=== PATIENT | female | born 1945 | race Caucasian/White ===

== ENCOUNTER 2016-12-19 11:17 | Inpatient (IN) ==
[2016-12-19] MEDS ORDERED: Piperacillin/Tazobactam 4.5 GM in D5% in Water (Mini-Bag+) 100 ML IVPB ONE (11:59)
[2016-12-19] MEDS ORDERED: Vancomycin 1,500 MG in D5% in Water 250 ML IVPB ONE (11:59)
[2016-12-19 12:17] LABS: Hematocrit 32.8 % (35.3-44.9); Hemoglobin 9.3 g/dL (11.5-15.4); Mean Corpuscular HGB Conc 28.4 g/dL (31.6-35.5); Mean Corpuscular Hemoglobin 22.9 pg (28.0-33.3); Mean Corpuscular Volume 80.6 fL (83.0-100.0); Mean Platelet Volume 10.8 fL (9.4-12.4); Platelet Count 220 K/mcL (140-400); Red Blood Count 4.07 M/mcL (3.82-4.97); Red Cell Distribution Width 17.6 % (11.5-14.5)
[2016-12-19 12:30] LABS: BUN/Creatinine Ratio 24 (6-26); Blood Urea Nitrogen 18 mg/dL (7-20); Calcium 9.9 mg/dL (8.6-10.8); Carbon Dioxide 24 mEq/L (19-29); Chloride 105 mEq/L (98-109); Glucose 102 mg/dL (70-99); Osmolality,Calculated 290 (280-300); Potassium 4.3 mEq/L (3.5-4.5); Sodium 139 mEq/L (136-145); eGFR For African Americans > 60 (> 60); eGFR For Non-African Americans > 60 (> 60)
--- NOTE | 2016-12-19 12:55 | Emergency Department Note ---
Disposition Clinical Impression: Pleural effusion, Shortness of breath Disposition: Admitted As Inpatient Condition: Fair SOB HPI - General Chief Complaint: ED Shortness of Breath/Dyspnea Stated Complaint: CHF/SOB/BLE edema Time Seen by Provider: 12/19/16 11:49 Source: patient Limitations: no limitations Nursing Notes Reviewed: Yes Vital Signs Reviewed: Yes - History of Present Illness Patient presents for shortness of breath which is worse the last several days and is worse with exertion, positive orthopnea, positive weight gain, positive swelling lower extremities. She denies history of cardiac disease but does have a history of a carotid stent in the distant past. She denies any chest pain. Does have urgency to urinate at night and when she gets back that sometimes has some incontinence patient does not have any back pain. Social history: No smoking. family history: Positive for heart disease in both parents - Related Data Home Medications Medication Instructions Recorded Confirmed Multivitamin [Multi-Day Vitamins] 1 each PO DAILY 12/28/14 12/19/16 Rivaroxaban [Xarelto] 20 mg PO DAILY 09/27/16 12/19/16 Acetaminophen [Tylenol Arthritis] 650 mg PO TID PRN 11/26/16 12/19/16 Clopidogrel [Plavix] 75 mg PO DAILY 11/26/16 12/19/16 Furosemide [Lasix] 20 mg PO DAILY 11/26/16 12/19/16 Lansoprazole [Prevacid] 30 mg PO QAM 11/26/16 12/19/16 Rosuvastatin Calcium [Crestor] 10 mg PO HS 11/26/16 12/19/16 Diltiazem HCl [Diltiazem ER] 360 mg PO DAILY 12/19/16 12/19/16 Metoprolol XL (24 HR) Succ [Toprol 25 mg PO BID 12/19/16 12/19/16 XL] Allergies Allergy/AdvReac Type Severity Reaction Status Date / Time simvastatin [From Zocor] Allergy Hives Verified 12/19/16 11:34 Estrogens AdvReac See Verified 12/19/16 11:34 Comments Review of Systems: Constitutional: No fever Vision: No blurred vision ENT: No rhinorrhea Respiratory: She does have a dry cough Allergic: No allergies : No blood in urine GI: No blood in stool Hematologic: No bruising Dermatologic: No skin rash Musculoskeletal: No pain in the extremities does have swelling bilateral lower extremities Neuro: No numbness of the extremities Past Medical History - Past Medical History Medical history: Reports: atrial fibrillation, cancer, hyperlipidemia, other Surgical history: Reports: hysterectomy Psychiatric history: Reports: no psych history OUTREACH ANALYST history: Reports: cervical cancer, endometriosis, other - Social History Smoking Status: Never smoker Smokeless Tobacco Status: No Alcohol use: Reports: none Drug use: Reports: none Physical Exam CONSTITUTIONAL: Well-appearing; well-nourished; A&O X 3, in no apparent distress HEAD: Normocephalic; atraumatic EYES: PERRL, no scleral icterus NOSE: The nose is normal in appearance without rhinorrhea NECK: No JVD or distended neck veins RESP: Normal chest excursion with respiration; breath sounds with bilateral rhonchi and crackles but no wheezing. Lung sounds are symmetric. CARD: Regular rhythm, without murmurs, rub or gallop ABD: Non-distended; non-tender, soft, without rigidity, rebound or guarding,no pulsatile mass CHEST: No pain with palpation SKIN: Normal for age and race; warm and dry without diaphoresis ; no apparent lesions EXTREMITIES: Pulses are 2 plus and equal times 4 extremities, does have bilateral symmetric 3+ pitting pretibial several edema, no calf muscle pain. No erythema or signs of infection - General Limitations: no limitations General appearance: alert Course Vital Signs Temperature 97.6 F 12/19/16 11:35 Pulse Rate 64 12/19/16 11:35 Respiratory Rate 20 12/19/16 11:35 Blood Pressure 112/62 12/19/16 11:35 O2 Sat by Pulse Oximetry 95 12/19/16 11:35 Temperature 97.6 F 12/19/16 18:17 Pulse Rate 137 12/19/16 18:17 Respiratory Rate 16 12/19/16 18:17 Blood Pressure 132/84 12/19/16 18:17 O2 Sat by Pulse Oximetry 93 12/19/16 18:17 Oxygen Delivery Oxygen Delivery Room Air Shortness of Breath/Dyspnea - MDM Narrative Medical decision making narrative: Symptoms concerning for congestive heart failure, I have reviewed the labs, chest x-ray is pending, I did review the T showing atrial fibrillation with rapid ventricular response with a rate of 112 bpm and some nonspecific ST changes. QRS interval is 94. Patient will have labs for BNP and this is pending. Patient will be admitted for CHF 1255 I rev the labs and has chronic anemia. CXR with new right pleural effusion. I spoke with IR and they will perform thorocentesis. I spoke w the hospitalist who accepts for admission. [id number] - Lab Data Result diagrams: 12/19/16 12:06 12/19/16 12:06 Lab Results 12/19/16 12/19/16 12/19/16 Range/Units 12:06 12:06 12:06 WBC 5.5 (4.3-11.1) K/mcL RBC 4.07 (3.82-4.97) M/mcL Hgb 9.3 L (11.5-15.4) g/dL Hct 32.8 L (35.3-44.9) % MCV 80.6 L (83.0-100.0) fL MCH 22.9 L (28.0-33.3) pg MCHC 28.4 L (31.6-35.5) g/dL RDW 17.6 H (11.5-14.5) % Plt Count 220 (140-400) K/mcL MPV 10.8 (9.4-12.4) fL PT (9.4-12.1) Seconds INR APTT (26.0-36.0) Seconds Sodium 139 (136-145) mEq/L Potassium 4.3 (3.5-4.5) mEq/L Chloride 105 (98-109) mEq/L Carbon Dioxide 24 (19-29) mEq/L BUN 18 (7-20) mg/dL Creatinine 0.74 (0.57-1.11) mg/dL Est GFR ( Amer) > 60 (> 60) Est GFR (Non-Af Amer) > 60 (> 60) BUN/Creatinine Ratio 24 (6-26) Glucose 102 H (70-99) mg/dL Calculated Osmolality 290 (280-300) Calcium 9.9 (8.6-10.8) mg/dL B-Natriuretic Peptide 234 H (0-100) pg/mL 12/19/16 Range/Units 12:06 WBC (4.3-11.1) K/mcL RBC (3.82-4.97) M/mcL Hgb (11.5-15.4) g/dL Hct (35.3-44.9) % MCV (83.0-100.0) fL MCH (28.0-33.3) pg MCHC (31.6-35.5) g/dL RDW (11.5-14.5) % Plt Count (140-400) K/mcL MPV (9.4-12.4) fL PT 19.3 H (9.4-12.1) Seconds INR 1.8 APTT 32.6 (26.0-36.0) Seconds Sodium (136-145) mEq/L Potassium (3.5-4.5) mEq/L Chloride (98-109) mEq/L Carbon Dioxide (19-29) mEq/L BUN (7-20) mg/dL Creatinine (0.57-1.11) mg/dL Est GFR ( Amer) (> 60) Est GFR (Non-Af Amer) (> 60) BUN/Creatinine Ratio (6-26) Glucose (70-99) mg/dL Calculated Osmolality (280-300) Calcium (8.6-10.8) mg/dL B-Natriuretic Peptide (0-100) pg/mL
[2016-12-19 13:24] LABS: INR 1.8; Prothrombin Time 19.3 Seconds (9.4-12.1)
[2016-12-19 13:26] LABS: Activated Partial Thrombo Time 32.6 Seconds (26.0-36.0)
[2016-12-19] MEDS ORDERED: Naloxone 0.4 MG/ML INJ IVP PRN (15:07)
[2016-12-19] MEDS ORDERED: Furosemide 40 MG/4 ML VIAL IVP ONE (15:15)
--- NOTE | 2016-12-19 15:15 | Internal Med History&Physical ---
<Kay Julien - Last Filed: 12/19/16 15:38> Date of Encounter: 12/19/16 Time of Encounter: 15:09 Assessment and Plan (1) CHF (congestive heart failure) Current visit: Yes Status: Acute 1 patient has been experiencing increasing shortness of breath on exertion orthopnea motion of the swelling as well as weight gain over the past week. She is on Lasix 20 mg daily and she did take an extra Lasix over the weekend without any relief. Chest x-ray did reveal a large right-sided pleural effusion. Did speak to interventional radiology through thoracentesis. We will hold Xarelto overnight and thoracentesis will be completed in the morning 2 with 40 mg IV Lasix now and increase oral dosage to 40 daily 3 continuous oxygen 4 continuous cardiac monitoring 5 we will obtain a cardiac echo 6 monitor intake and output daily weights 7 low sodium diet Qualifiers: Congestive heart failure type: diastolic Congestive heart failure chronicity: acute on chronic Qualified Code(s): I50.33 - Acute on chronic diastolic (congestive) heart failure (2) Pleural effusion Current visit: Yes Status: Acute 1 apparently in September patient was diagnosed with a small right-sided pleural effusion. She has been experiencing increasing shortness of breath over the past week. Chest x-ray reveals pleural effusion has grown. Patient will undergo thoracentesis in the a.m. We will hold Xarelto 2NPO after midnight (3) Atrial fibrillation Current visit: Yes Status: Acute 1 patient has history of chronic atrial fibrillation. Presently rate is controlled. We will continue with xarelto 2 continue with metoprolol and Cardizem Qualifiers: Atrial fibrillation type: chronic Qualified Code(s): I48.2 - Chronic atrial fibrillation (4) DVT prophylaxis Current visit: Yes Status: Acute 1 on xarelto Internal Medicine - H&P: HPI Chief complaint: SOB Admitted From: Emergency Dept Plans for Post Hospital Care: Home History of present illness: Ms. Dustin Lopez is a 71 year old female with past medical history of CVA carotid stenosis with stent placement 10/2016 chronic atrial fibrillation on Xarelto. In September patient had a mild stroke she was sent to [facility] where she received a stent to right carotid. While at [facility] it was that she had a small pleural effusion was advised to follow-up with pulmonary. She was then placed on Plavix. Since this time she has had some experience of nosebleeds and has been all by ENT. She has not had any nosebleeds past few days. However for the past week she has been experiencing increasing shortness of breath on exertion she is unable to perform her ADLs orthopnea or weight gain swelling of lower extremities. She denies any chest pain, palpitations or productive cough fevers abdominal pain nausea vomiting diarrhea. She presented to the ER with the above complaints. According to ER records and lab work revealed BNP of 234 INR was 1.8 PT is 19.3 PTT 32.6 Chem-7 unremarkable CBC with hemoglobin 9.3 which is around her baseline. Chest x-ray did reveal large right-sided pleural effusion. She has been admitted for further workup and evaluation. Presently patient is walking around the room she was short of breath she had conversational dyspnea. Lung sounds are clear diminished in the bases heart sounds irregular S1-S2 no rubs clicks or gallops murmurs noted abdomen soft nontender she has +2 pitting edema up to her knees bilaterally. I did speak to interventional radiology who advised to hold Xarelto overnight and thoracentesis will be completed in the morning. She is hemodynamically stable. I reviewed his case with Dr. Denny who agrees with plan Past Med Surg Social Fam HX - Past Medical History Medical history: atrial fibrillation, cancer, hyperlipidemia, other Psychiatric history: no psych history - Past Surgical History Surgical History: hysterectomy - Social History Smoking Status: Never smoker Smokeless Tobacco Status: No Alcohol use: none Drug use: none - Family History Mother Living Status: Hx Family Cardiac Disorders: Yes (Afib) Hx Family Cancer: Yes Hx Family Endocrine Disorder: Yes (Diabetes) Hx Family Neurologic Disorders: Yes (Stroke) Internal Medicine - H&P: Meds Multivitamin [Multi-Day Vitamins] 1 each PO DAILY 12/28/14 [History] Rivaroxaban [Xarelto] 20 mg PO DAILY 09/27/16 [History] Acetaminophen [Tylenol Arthritis] 650 mg PO TID PRN 11/26/16 [History] Clopidogrel [Plavix] 75 mg PO DAILY 11/26/16 [History] Furosemide [Lasix] 20 mg PO DAILY 11/26/16 [History] Lansoprazole [Prevacid] 30 mg PO QAM 11/26/16 [History] Rosuvastatin Calcium [Crestor] 10 mg PO HS 11/26/16 [History] Diltiazem HCl [Diltiazem ER] 360 mg PO DAILY 12/19/16 [History] Metoprolol XL (24 HR) Succ [Toprol XL] 25 mg PO BID 12/19/16 [History] 3 Allergy/AdvReac Type Severity Reaction Status Date / Time simvastatin [From Zocor] Allergy Hives Verified 12/19/16 11:34 Estrogens AdvReac See Verified 12/19/16 11:34 Comments All Systems PM: A 10-system review of systems was performed and is negative for pertinent findings except as documented above in the HPI. - Constitutional Constitutional: no chills, no fever(s), no night sweats - EENT Eyes: no change in vision, no discharge, no pain, no photophobia Nose, mouth and throat: epistaxis - Cardiovascular Cardiovascular ROS IM: dyspnea, dyspnea on exertion, edema, irregular heart rhythm, orthopnea, no chest pain, no diaphoresis, no lightheadedness, no palpitations, no syncope - Respiratory Respiratory: dyspnea on exertion, no cough, no dyspnea, no wheezing, no excessive phlegm production - Gastrointestinal Gastrointestinal: no abdominal pain, no diarrhea, no hematemesis, no hematochezia, no melena, no nausea, no vomiting - Genitourinary Genitourinary: no change in urinary stream, no dysuria, no flank pain, no hematuria - Musculoskeletal Musculoskeletal ROS IM: no numbness, no tingling - Neurological Neurological ROS: no confusion, no convulsions, no focal weakness, no numbness, no tingling, no tremor(s) - Hematologic/Lymphatic Hematologic/Lymphatic: no easy bruising - Constitutional Vitals: Temp Pulse Resp BP Pulse Ox 97.6 F 101 0 0/0 98 12/19/16 11:35 12/19/16 13:34 12/19/16 13:54 12/19/16 13:54 12/19/16 13:34 General appearance: Present: A&O X 3 - Head Head exam: Present: atraumatic, normocephalic - Eye Eye exam: Present: PERRL, conjuntiva pink, sclera anicteric Pupils: Present: PERRL - Neck Neck exam general surgery: Present: supple, trachea midline. Absent: lymphadenopathy - Respiratory Respiratory exam: Present: decreased breath sounds, CTAB. Absent: accessory muscle use, rales, rhonchi, wheezes - Cardiovascular Cardiovascular exam: Present: irregular rhythm, +S1, +S2. Absent: diastolic murmur, gallop, rubs, systolic murmur - GI/Abdominal GI/Abdominal exam: Present: normal bowel sounds, soft, no peritoneal signs. Absent: distended, tenderness - Extremities Exam Extremities exam: Present: pedal edema, warm, radial pulses palpable and symmetrical. Absent: calf tenderness, cyanotic - Neurological Exam Neurological exam: Present: CN II-XII intact, oriented X3, no focal deficits. Absent: pronater drift, facial droop, speech deficit - Skin Skin exam: Present: dry, intact Internal Med - H&P Results - Labs CBC & Chem 7: 12/19/16 12:06 12/19/16 12:06 - EKG Data Prior EKG available for review: yes When compared to previous EKG: there is no significant change - Impressions Afib - Diagnostic Studies Other Images Additional comments: Chest X-Ray 12/19/16 12:04 IMPRESSION: Large right-sided pleural effusion with overlying atelectatic changes. D/ / 12/19/2016 12:26:32 Naif Guerrero MD / jai Interpreting Provider: Naif Guerrero MD <Taina Denny - Last Filed: 12/19/16 17:25> Date of Encounter: 12/19/16 Internal Medicine - H&P: HPI History of present illness: Ms. Dustin Lopez is a 71 year old female All Systems PM: A 10-system review of systems was performed and is negative for pertinent findings except as documented above in the HPI. - Constitutional Vitals: Temp Pulse Resp BP Pulse Ox 98.3 F 114 17 126/83 94 12/19/16 14:50 12/19/16 14:50 12/19/16 14:50 12/19/16 14:50 12/19/16 14:50 Internal Med - H&P Results - Labs CBC & Chem 7: 12/19/16 12:06 12/19/16 12:06 - Attending Attestation Pt independently seen and examined at bedside. Admitted for dyspnea secondary to large right pleural effusion. History of CHF. Will continue IV diuresis today. IR consulted for thoracentesis. Pleural fluid studies ordered for further evaluation and to determine if it is a transudative vs exudative effusion. will closely monitor respiratory status. O2 supplementation as needed Case discussed with CAROL Julien, I agree with her documented findings, assessment, and plan.
[2016-12-19] MEDS: Metoprolol XL (24 HR) Succ 25 MG TAB.ER.24H PO SCH (19:50)
[2016-12-19] MEDS: Acetaminophen 325 MG TABLET PO PRN (21:01)
[2016-12-20 01:45] LABS: Basophils % 0.5 %; Eosinophils % 0.5 %; Hemoglobin 9.3 g/dL (11.5-15.4); Immature Granulocytes % 0.2 % (0-4); Monocytes % 10.7 %
[2016-12-20 01:46] LABS: Hematocrit 32.9 % (35.3-44.9); Lymphocytes # 1.2 K/mcL (0.6-4.6); Lymphocytes % 21.1 %; Mean Corpuscular HGB Conc 28.3 g/dL (31.6-35.5); Mean Corpuscular Hemoglobin 22.6 pg (28.0-33.3); Mean Platelet Volume 11.1 fL (9.4-12.4); Monocytes # 0.6 K/mcL (0.0-1.3); Platelet Count 228 K/mcL (140-400); Red Blood Count 4.11 M/mcL (3.82-4.97); Red Cell Distribution Width 17.6 % (11.5-14.5)
[2016-12-20 01:56] LABS: BUN/Creatinine Ratio 24 (6-26); Blood Urea Nitrogen 19 mg/dL (7-20); Carbon Dioxide 25 mEq/L (19-29); Chloride 105 mEq/L (98-109); Glucose 93 mg/dL (70-99); Osmolality,Calculated 292 (280-300); Potassium 4.6 mEq/L (3.5-4.5); Sodium 140 mEq/L (136-145); eGFR For African Americans > 60 (> 60); eGFR For Non-African Americans > 60 (> 60)
[2016-12-20 02:15] LABS: Anisocytosis 1+ (Not Present); Hypochromasia Present (Not Present); Microcytosis Present (Not Present); Platelet Estimate Normal (Normal); Reactive Lymphocytes Present (Not Present)
[2016-12-20] MEDS: Acetaminophen 325 MG TABLET PO PRN ×3 (04:24→19:50)
[2016-12-20] MEDS: Diltiazem CD (24hr) 180 MG CAPSULE PO SCH (08:58)
[2016-12-20] MEDS: Metoprolol XL (24 HR) Succ 25 MG TAB.ER.24H PO SCH ×2 (08:59→19:49)
[2016-12-20] MEDS: Multivit/Ca/Min/Fe/FA 1 TAB TABLET PO SCH (08:59)
[2016-12-20] MEDS: Furosemide 40 MG TABLET PO SCH (08:59)
--- NOTE | 2016-12-20 10:02 | IR Procedure Note ---
Date of procedure: 12/20/16 Consent Obtained: Verbal consent, Written consent Indications: right pleural effusion Procedure Performed: right thoracentesis Site/Technique: right thoracentesis performed Results/Findings: Moderate pleural effusion Estimated blood loss (cc): 1 Complications: None; Tolerated procedure well Post Procedure Treatment Plan: Continue inpatient care
--- NOTE | 2016-12-20 11:31 | Internal Med Progress Note ---
Date of Encounter: 12/20/16 Time of Encounter: 08:15 - Assessment and plan (1) Pleural effusion Current Visit: Yes Status: Acute Assessment and plan: Chest xray with large right sided pleural effusion, thoracentesis performed. Repeat chest xray with significantly smaller right pleural effusion following thoracentisis. No pneumothorax. Pt had chest pain after procedure and radiologist was notified. No changes, states that is probably rebound pain. 1600 ml fluid removed during procedure. Continue telemetry 02 as needed for 02 sats less than 92% (2) CHF (congestive heart failure) Current Visit: Yes Status: Acute Assessment and plan: Pt with SOB, pleural effusion/thoracentesis, +3-4 pitting edema to delia LE which is normal for her, uncomfortable and makes it difficult to ambulate and find properly fitting shoes. Continue Lasix Strict I and O, Fluid restriction, Daily weights Telemetry O2 as needed for 02 sats < 92% Monitor labs and vitals Qualifiers: Congestive heart failure type: diastolic Congestive heart failure chronicity: acute on chronic Qualified Code(s): I50.33 - Acute on chronic diastolic (congestive) heart failure (3) HTN (hypertension) Current Visit: Yes Status: Acute Assessment and plan: Continue to monitor vitals. Continue home medications. Well controlled in inpt setting. Qualifiers: Hypertension type: essential hypertension Qualified Code(s): I10 - Essential (primary) hypertension (4) Atrial fibrillation Current Visit: Yes Status: Acute Assessment and plan: Xarelto was held for procedure, will restart tomorrow. Rate controlled with Metoprolol and Cardizem. Continue medications. Qualifiers: Atrial fibrillation type: chronic Qualified Code(s): I48.2 - Chronic atrial fibrillation (5) DVT prophylaxis Current Visit: Yes Status: Acute Assessment and plan: Pt is ambulatory in room. will restart Xarelto in the a.m. AQUILES hose. - Time Spent With Patient less than 15 minutes - Subjective Interval history: Pt seen and assessed at 0815. Female friend at . She denies pain at this time , but states that she has had orthopnea for 2 weeks. She states that she has been seen by pulmonology and did not get to finish any of the testing due to epistaxis and prolonged packing. She also states that she is fatigued due to not being able to sleep due to orthopnea and incontinence when she lies down. She reports approximately 30lb weight gain over 2 mos. She states that she is unable to complete her ADLs due to dyspnea. - Constitutional Vitals: Temp Pulse Resp BP Pulse Ox 97.7 F 124 15 104/71 100 12/20/16 10:59 12/20/16 10:59 12/20/16 10:59 12/20/16 10:59 12/20/16 10:59 General appearance: Present: A&O X 3, pleasant, no acute distress, answers questions appropriately - Head Head exam: Present: normal inspection - Eye Eye exam: Present: normal appearance, conjuntiva pink - ENT ENT exam: Present: mucous membranes moist, normal exam, normal external ear exam - Neck Neck exam general surgery: Present: normal inspection. Absent: lymphadenopathy , tenderness - Respiratory Respiratory exam: Present: decreased breath sounds. Absent: chest wall tenderness, prolonged expiratory phase, rales, respiratory distress, rhonchi, stridor, wheezes Additional comments: lung sounds diminished on entire R side posteriorly, clear on L. - Cardiovascular Cardiovascular exam: Present: RRR, +S1, +S2. Absent: clicks, diastolic murmur, gallop, systolic murmur - GI/Abdominal GI/Abdominal exam: Present: normal bowel sounds, soft. Absent: distended, hepatomegaly, tenderness - Extremities Exam Extremities exam: Present: pedal edema, tenderness, warm, radial pulses palpable and symmetrical. Absent: normal inspection Additional comments: +3-4 pitting edema to ble from knees to toes. - Neurological Exam Neurological exam: Present: alert, oriented X3, no focal deficits, strengths equal and symetr throughout. Absent: altered, facial droop, speech deficit - Skin Skin exam: Present: dry, intact, normal color, warm. Absent: rash Internal Medicine: Result - Labs CBC & Chem 7: 12/20/16 01:15 12/20/16 01:15 - ABG Interpretation ABG results: PT/INR, D-dimer PT 19.3 Seconds (9.4-12.1) H 12/19/16 12:06 Consult Discharge Plan - Plan Referrals: NONE,PCP [Primary Care Provider] -
[2016-12-20 12:02] LABS: RBC,Pleural Fluid 0.021 M/mcL
[2016-12-20 12:12] LABS: Glucose,Pleural Fluid 104 mg/dL (No Ref Range); LDH,Pleural Fluid 98 Units/L (No Ref Range); Total Protein,Pleural Fluid 4.5 g/dL (No Ref Range)
[2016-12-20 13:14] LABS: Appearance of Pleural Fl Cloudy (Clear)
--- NOTE | 2016-12-20 16:59 | Electrocardiograph Report ---
[place] [id number] Test Date: 2016-12-19 Pat Name: Leonor Lopez Department: 104 Room: 3B Gender: F Member Service Specialist: : [id number] Requested By: Eladio Tafoya Order Number: [id number] Reading MD: Venessa Mcdowell Measurements Intervals [place] Rate: 112 P: NE: 0 QRS: 35 QRSD: 94 T: 60 QT: 338 QTc: 404 Interpretive Statements ATRIAL FIBRILLATION WITH RAPID VENTRICULAR RESPONSE NONSPECIFIC T-WAVE ABNORMALITY ABNORMAL RHYTHM ECG Electronically Signed On 12-20-2016 16:57:25 EDT by Venessa Mcdowell
[2016-12-21] MEDS: Acetaminophen 325 MG TABLET PO PRN (03:31)
[2016-12-21 05:17] LABS: Basophils % 0.5 %; Eosinophils % 0.5 %; Hematocrit 29.4 % (35.3-44.9); Hemoglobin 8.8 g/dL (11.5-15.4); Immature Granulocytes % 0.2 % (0-4); Lymphocytes # 1.2 K/mcL (0.6-4.6); Lymphocytes % 21.3 %; Mean Corpuscular HGB Conc 29.9 g/dL (31.6-35.5); Mean Corpuscular Volume 80.1 fL (83.0-100.0); Mean Platelet Volume 11.6 fL (9.4-12.4); Monocytes # 0.7 K/mcL (0.0-1.3); Monocytes % 11.8 %; Neutrophils # 3.6 K/mcL (1.6-8.9); Platelet Count 193 K/mcL (140-400); Red Blood Count 3.67 M/mcL (3.82-4.97); Red Cell Distribution Width 17.8 % (11.5-14.5); Segmented Neutrophils % 65.7 %
[2016-12-21 05:29] LABS: BUN/Creatinine Ratio 21 (6-26); Blood Urea Nitrogen 18 mg/dL (7-20); Calcium 9.7 mg/dL (8.6-10.8); Carbon Dioxide 29 mEq/L (19-29); Chloride 105 mEq/L (98-109); Glucose 87 mg/dL (70-99); Osmolality,Calculated 295 (280-300); Potassium 4.2 mEq/L (3.5-4.5); Sodium 142 mEq/L (136-145); eGFR For African Americans > 60 (> 60); eGFR For Non-African Americans > 60 (> 60)
[2016-12-21 07:43] VITALS: BP 113/72
[2016-12-21] MEDS: Metoprolol XL (24 HR) Succ 25 MG TAB.ER.24H PO SCH (09:27)
[2016-12-21] MEDS: Multivit/Ca/Min/Fe/FA 1 TAB TABLET PO SCH (09:27)
[2016-12-21] MEDS: Diltiazem CD (24hr) 180 MG CAPSULE PO SCH (09:28)
[2016-12-21] MEDS: Furosemide 40 MG TABLET PO SCH (09:28)
--- NOTE | 2016-12-21 10:54 | Discharge Summary ---
Date of Encounter: 12/21/16 Time of Encounter: 08:50 - Discharge Diagnosis (1) Pleural effusion Priority: Primary Status: Acute Comments: Thoracentesis yesterday. Removed 1600ml serous fluid. Repeat chest xray shows small pleural effusion without pneumothorax. Pt states that she is feeling better and is breathing miuch easier; states that she is able to lie down for the first time in a long time. Peripheral smear is still pending. Fluid was cloudy with RBC elevated at 0.021. Pt will follow up with PCP after discharge. (2) CHF (congestive heart failure) Priority: Secondary Status: Chronic Comments: Pt states that she is breathing more easily than on arrival and edema to BLE is somewhat better than arrival, still +3-4, but is not hard as it was yesterday. pt states that they are somewhat less painful than arrival. Continue Lasix at home. Education completed on fluid restriction, low sodium diet and daily weights. Pt will follow up with PCP within 7 days, could discuss increasing lasix for edema. Qualifiers: Congestive heart failure type: diastolic Congestive heart failure chronicity: acute on chronic Qualified Code(s): I50.33 - Acute on chronic diastolic (congestive) heart failure (3) HTN (hypertension) Priority: Secondary Status: Chronic Comments: Chronic. Continue home medications. Qualifiers: Hypertension type: essential hypertension Qualified Code(s): I10 - Essential (primary) hypertension (4) Atrial fibrillation Priority: Secondary Status: Chronic Comments: Continue Xarelto. Rate controlled with Metoprolol and Cardizem. continue home doses. Qualifiers: Atrial fibrillation type: chronic Qualified Code(s): I48.2 - Chronic atrial fibrillation (5) DVT prophylaxis Priority: Secondary Status: Acute Comments: Continue Xarelto. - Discharge Medications Home Medications: Multivitamin [Multi-Day Vitamins] 1 each PO DAILY 12/28/14 [History] Rivaroxaban [Xarelto] 20 mg PO DAILY 09/27/16 [History] Acetaminophen [Tylenol Arthritis] 650 mg PO TID PRN 11/26/16 [History] Clopidogrel [Plavix] 75 mg PO DAILY 11/26/16 [History] Furosemide [Lasix] 20 mg PO DAILY 11/26/16 [History] Lansoprazole [Prevacid] 30 mg PO QAM 11/26/16 [History] Rosuvastatin Calcium [Crestor] 10 mg PO HS 11/26/16 [History] Diltiazem HCl [Diltiazem ER] 360 mg PO DAILY 12/19/16 [History] Metoprolol XL (24 HR) Succ [Toprol Xl] 25 mg PO BID 12/19/16 [History] Allergies/Adverse Reactions: 3 Allergy/AdvReac Type Severity Reaction Status Date / Time simvastatin [From Zocor] Allergy Hives Verified 12/19/16 11:34 Estrogens AdvReac See Verified 12/19/16 11:34 Comments Date of admission: 12/20/16 10:49 Primary care physician: PCP NONE Discharging clinician: Luanne Garrido Anticipated date of discharge: 12/21/16 - Patient Status Disposition: Home, Self-Care Condition: Good Functional capacity at discharge: independent ambulation Overall status at discharge: patient is progressing back to baseline - Discharge Instructions Instructions: Heart Failure (DC), Atrial Fibrillation (DC), Pleural Effusion ( DC), Chronic Hypertension (DC) Follow Up With: Kavon Castaneda MD [Partnered Physician] - 12/29/16 11:30 am NONE,PCP [Primary Care Provider] - Additional Instructions: Follow up with your PCP on 12/29 as scheduled. Increase your Lasix to 40mg daily at home for the next 3 days, then go back to your normal dose. Return to the ER as needed for any other problems or concerns or if your symptoms return or worsen. Continue your other home medications and resume your normal activities as tolerated. Remember to follow a low sodium diet and fluid restriction. Weigh yourself daily, if you start seeing a weight gain again, notify your PCP. - Diet and Activity Activity: increase activity as tolerated, resume usual activities as tolerated Diet: low salt diet, other Hospital course: Ms. Dustin Lopez is a 71 year old female with past medical history of TIA, CHF diastolic, palpitations, A. fib with anticoagulation on Xarelto. She presented to the emergency department on 12/19 with complaint of increasing shortness of breath on exertion, difficulty performing ADLs, orthopnea, increased lower extremity edema, as well as a 30 pound weight gain over the last 2-3 months. Patient takes Lasix 40 mg daily at home, she did increase her Lasix over the weekend without any relief. Patient states that she has not been able to lie down to sleep and did not see the need to seek care for that. Chest x-ray on admission showed a large right-sided pleural effusion. Patient had diminished lung sounds on the right for physical exam prior to thoracentesis. Thoracentesis was performed at bedside, 1600 mL's of serous fluid was removed. Patient tolerated the procedure well, she did have right shoulder pain after the procedure that was relieved with analgesic medication. Patient also has +3-4 pitting edema bilaterally, it does seem to be improved today and is less hard than it was before, although it is still pending. Patient also notices significant difference to lower extremities and we will increase her Lasix dose at home for a few days. She will follow up with primary care for further treatment and evaluation of CHF and edema. Patient has diminished lung sounds throughout posteriorly, as stated above peripheral edema is marginally better today. Patient does state that she is breathing more easily and does feel better today. We discussed home care including monitoring fluid restriction, daily weights, and low-sodium diet. Patient verbalized understanding and I feel that she will be successful. Patient will continue her normal home medications with the exception of increasing the Lasix for the next couple of days. She will restart her Xarelto today. Patient's labs are within normal limits, her vital signs are stable and within normal limits, she has a follow-up appointment with her primary care provider on December 29. I have encouraged her to return to the ER for continued treatment if she begins having chest pain, shortness of breath, increasing edema or weight gain. Patient is appropriate and stable for discharge. - Time Spent with Patient Total time spent providing and/or coordinating discharge services: Less than 30 minutes - Constitutional Vitals: Temp Pulse Resp BP Pulse Ox 97.6 F 110 18 113/72 96 12/21/16 07:39 12/21/16 07:39 12/21/16 07:39 12/21/16 07:39 12/21/16 09:44 General appearance: Present: cooperative, A&O X 3, pleasant, no acute distress, answers questions appropriately - Head Head exam: Present: atraumatic, normal inspection, normocephalic - Eye Eye exam: Present: normal appearance, PERRL, conjuntiva pink Pupils: Present: PERRL - ENT ENT exam: Present: mucous membranes moist, normal exam, normal external ear exam - Neck Neck exam general surgery: Present: normal inspection, supple, trachea midline. Absent: lymphadenopathy, tenderness - Respiratory Respiratory exam: Present: CTAB. Absent: accessory muscle use, rales, rhonchi, wheezes - Cardiovascular Cardiovascular exam: Present: irregular rhythm, +S1, +S2. Absent: diastolic murmur, gallop, rubs, systolic murmur - GI/Abdominal GI/Abdominal exam: Present: normal bowel sounds, soft, no peritoneal signs. Absent: distended, hepatomegaly, tenderness - Extremities Exam Extremities exam: Present: pedal edema, warm, radial pulses palpable and symmetrical. Absent: calf tenderness, cyanotic - Neurological Exam Neurological exam: Present: alert, oriented X3, no focal deficits, pronater drift. Absent: facial droop, speech deficit - Skin Skin exam: Present: dry, intact, normal color, warm. Absent: rash
== END 2016-12-21 11:24 | disposition home or self-care (01) | DRG 292 ==
LOC: 3BNU 11:17 → EMEROO 11:17 → 3BNU 14:12
PROVIDERS: ADMIT Internal Medicine; ATTEND Nurse Practitioner Family

== ENCOUNTER 2017-03-15 13:11 | Observation (INO) ==
--- NOTE | 2017-03-15 14:29 | Emergency Department Note ---
Disposition Clinical Impression: Shortness of breath, Pleural effusion Atrial fibrillation Qualifiers: Atrial fibrillation type: chronic Qualified Code(s): I48.2 - Chronic atrial fibrillation Disposition: Admitted As Inpatient Time of Disposition: 16:13 SOB HPI - General Chief Complaint: ED Shortness of Breath/Dyspnea Stated Complaint: EDWAR Time Seen by Provider: 03/15/17 13:36 Source: patient Mode of arrival: ambulatory Limitations: no limitations Nursing Notes Reviewed: Yes Vital Signs Reviewed: Yes - History of Present Illness 71 year old female presents to the ED complaining of shortness of breath. Patient is currently being worked up by pulmonology for continuing pleural effusions and one chylothorax. She was drained 2 weeks ago. Today she was sitting in the PET scan was unable to lay down and said she was very short of breath so they sent her here as she would need a pulmonary consult. Patient is not complaining of any pain. She does have history of A. fib is always in A. fib she did take her normal medications today. She is currently being worked up for some kind of cancer causing her to have these pulmonary effusions. Patient is currently being worked up for this. At this time she is having no other complaints other than the shortness of breath. She is only short of breath when she lays down is not when she is sitting up. She is not normally on oxygen. There is no source of the cancer that they have found yet. Patient is not complaining of any chest pain, shortness of breath, headaches, blurry vision, abdominal pain, change in bowel movements. She has had increased leg swelling and has been incontinent for the last couple days she says due to her being fluid overloaded. This is normal for her after she does get to fluid overloaded. She is taking Lasix. There is no changes to her medications otherwise. She is having no pain or tingling go down the arms or legs, generalized numbness or weakness. Patient has no other complaints at this time. - Related Data Home Medications Medication Instructions Recorded Confirmed Multivitamin [Multi-Day Vitamins] 1 each PO DAILY 12/28/14 03/15/17 Rivaroxaban [Xarelto] 20 mg PO DAILY 09/27/16 03/15/17 Acetaminophen [Tylenol Arthritis] 650 mg PO Q12H PRN 11/26/16 03/15/17 Clopidogrel [Plavix] 75 mg PO DAILY 11/26/16 03/15/17 Furosemide [Lasix] 20 - 40 mg PO DAILY 11/26/16 03/15/17 Lansoprazole [Prevacid] 30 mg PO QAM 11/26/16 03/15/17 Rosuvastatin Calcium [Crestor] 10 mg PO HS 11/26/16 03/15/17 Diltiazem HCl [Diltiazem ER] 360 mg PO DAILY 12/19/16 03/15/17 Metoprolol XL (24 HR) Succ [Toprol 25 mg PO BID 12/19/16 03/15/17 Xl] Allergies Allergy/AdvReac Type Severity Reaction Status Date / Time simvastatin [From Zocor] Allergy Hives Verified 12/19/16 11:34 Estrogens AdvReac See Verified 12/19/16 11:34 Comments Review of Systems: 10 point review of systems done and negative unless otherwise stated in history of present illness. All systems ED: reviewed and negative except as stated. Review of Systems: As Per HPI Past Medical History - Past Medical History Attestation: Yes The following information was validated with the patient. Medical history: Reports: arthritis, atrial fibrillation, cancer, fibromyalgia, hyperlipidemia, other Surgical history: Reports: angioplasty/stent, hysterectomy Psychiatric history: Reports: depression [employer]ATE[employer]EC[employer]IVE history: Reports: cervical cancer, endometriosis, other - Social History Smoking Status: Never smoker Smokeless Tobacco Status: No Alcohol use: Reports: none Drug use: Reports: none Physical Exam - General Limitations: no limitations General appearance: alert, in no apparent distress - Head Head exam: atraumatic, normocephalic, normal inspection - Eye Eye exam: Present: normal appearance, PERRL, EOMI - ENT ENT exam: normal exam, normal oropharynx, mucous membranes moist - Neck Neck exam: Present: normal inspection, full ROM, trachea midline - Chest Chest inspection: Present: normal inspection, symmetric chest wall rise - Respiratory Respiratory exam: Present: normal lung sounds bilaterally, other (Patient has diminished breath sounds on the right lower lobe. Otherwise normal breath sounds.). Absent: respiratory distress, accessory muscle use, prolonged expiratory phase - Cardiovascular Cardiovascular exam: Present: tachycardia, irregular rhythm, normal heart sounds - Abdominal Exam Abdominal exam: Present: soft, Non-Tender. Absent: tenderness, distention, guarding, rebound, rigidity - Extremities Exam Extremities exam: Present: normal inspection, full ROM, normal capillary refill , pedal edema (Patient has 3+ pitting edema bilaterally.). Absent: tenderness, calf tenderness - Expanded Lower Extremity Exam Neurovascular/Tendon exam: Present: normal capillary refill. Absent: pulse deficit, motor deficit, sensory deficit, tendon deficit - Back Exam Back exam: Present: normal inspection, full ROM. Absent: tenderness, CVA tenderness (R), CVA tenderness (L) - Neurological Exam Neurological exam: Present: alert, oriented X3 - Skin Skin exam: Present: warm, dry, intact, normal color Course Course Narrative: 71-year-old female presents to the ED complaining of difficulty breathing when laying down for PET scan. We will do a chest pain and dyspnea workup. We will get a chest x-ray. Patient is a 30 on medication she is always in A. fib she did take her normal medications. We will not work at the atrial fibrillation at this time. Patient is okay with this. - Reevaluation(s) Reevaluation #1: Interventional radiology called back and said that she does have a pleural effusion there in house and they said they will come down to do a thoracentesis on the patient now. Patient was notified of this and agrees with this plan. Time: 14:33 Reevaluation #2: When I are came down to see her and they stated they cannot do the procedure due to her being on Xarelto. They would like for us to hold that and they said that they will do it later. At this time I called Dr. camron watkins and he states that we can admit to the hospitalist service with a pulmonology consult and he will do that tomorrow. In distress to hold it. I spoke the patient she agrees to this plan. - Consultations Consultation #1: Contact interventional radiology to see if they could do a thoracentesis on this patient as she does have a pleural effusion on her right side. They said they will come down and do it in the emergency department. Time: 14:33 Vital Signs Temperature 97.5 F L 03/15/17 13:14 Pulse Rate 110 03/15/17 13:14 Respiratory Rate 20 03/15/17 13:14 Blood Pressure 110/61 03/15/17 13:14 O2 Sat by Pulse Oximetry 96 03/15/17 13:14 Temperature 97.7 F 03/15/17 13:48 Pulse Rate 114 03/15/17 15:20 Respiratory Rate 16 03/15/17 16:44 Blood Pressure 132/86 03/15/17 16:44 O2 Sat by Pulse Oximetry 96 03/15/17 15:20 Oxygen Delivery Oxygen Delivery Room Air Shortness of Breath/Dyspnea - MDM Narrative Medical decision making narrative: 71-year-old female presents the ED with dyspnea. She was at the PET scan as she has been having these pleural effusions occurring quite a bit on her. She is currently being seen by pulmonology for this issue. There is a 1 sort of the PET scan. When she laid down she is unable to lay down since with a sent her here for evaluation. She was short of breath. We did chest x-ray showed a large pleural effusion on the right side. Interventional radiology was called to come to the thoracentesis she was unable to have it done here today as she is currently on Xarelto. We will hold that for 24 hours and admit her for observation. I contacted pulmonology and spoke with Dr. Pacheco who said that he will do a thoracentesis tomorrow and discharge her home in up for us to put a pulmonology consult and this was all done. All of her labs were normal. She is in atrial fibrillation which is normal for her and she is currently on diltiazem and metoprolol and takes them regularly. She was taking off her medications before the scan. She says she is not having any chest pain or any other symptoms. This will be an admission for thoracentesis to be done tomorrow. Patient will hold her Xarelto. Patient is admitted to Dr. SOSA who agreed to accept the patient. Patient is admitted in stable condition. - Medical Records Medical records reviewed: Yes I reviewed the patient's medical records. - Lab Data Lab results reviewed: Yes I reviewed the patient's lab results. Result diagrams: 03/15/17 14:33 03/15/17 14:33 Lab Results 03/15/17 03/15/17 03/15/17 Range/Units 14:26 14:33 14:33 WBC 6.8 (4.3-11.1) K/mcL RBC 4.39 (3.82-4.97) M/mcL Hgb 9.6 L (11.5-15.4) g/dL Hct 33.8 L (35.3-44.9) % MCV 77.0 L (83.0-100.0) fL MCH 21.9 L (28.0-33.3) pg MCHC 28.4 L (31.6-35.5) g/dL RDW 18.3 H (11.5-14.5) % Plt Count 184 (140-400) K/mcL MPV 11.0 (9.4-12.4) fL Seg Neutrophils % 80.0 % Lymphocytes % 10.0 % Monocytes % 10.0 % Neutrophils # 5.4 (1.6-8.9) K/mcL Lymphocytes # 0.7 (0.6-4.6) K/mcL Monocytes # 0.7 (0.0-1.3) K/mcL Platelet Estimate Slight Decrease L (Normal) Polychromasia 1+ A (Not Present) Hypochromasia Present A (Not Present) Target Cells 1+ A (Not Present) PT (9.4-12.1) Seconds INR Sodium 141 (136-145) mEq/L Potassium 3.8 (3.5-4.5) mEq/L Chloride 105 (98-109) mEq/L Carbon Dioxide 26 (19-29) mEq/L BUN 23 H (7-20) mg/dL Creatinine 0.82 (0.57-1.11) mg/dL Est GFR ( Amer) > 60 (> 60) Est GFR (Non-Af Amer) > 60 (> 60) BUN/Creatinine Ratio 28 H (6-26) Glucose 135 H (70-99) mg/dL Calculated Osmolality 298 (280-300) Lactic Acid (0.5-2.2) mmol/L Calcium 9.7 (8.6-10.8) mg/dL Troponin I (0-0.03) ng/mL B-Natriuretic Peptide (0-100) pg/mL Urine Color Yellow (Yellow) Urine Clarity Clear (Clear) Urine pH 6.0 (5.0-8.0) pH Units Ur Specific [place] 1.018 (1.010-1.025) Urine Protein Negative (Neg-Trace) mg/dL Urine Glucose (UA) Normal (Normal) mg/dL Urine Ketones Negative (Negative) mg/dL Urine Blood Trace H (Negative) Urine Nitrite Negative (Negative) Urine Bilirubin Negative (Negative) Urine Urobilinogen Normal (Normal) mg/dL Ur Leukocyte Esterase Negative (Negative) Urine Microscopic RBC 0-3 (0-3) per hpf Urine Microscopic WBC 0-3 (0-3) per hpf Ur Squamous Epith Cells Moderate H (None-Few) per lpf Urine Bacteria Moderate H (None-Few) per hpf Hyaline Casts None Seen (None-Few) per lpf Ur Culture Indicated? NO (NO) 03/15/17 03/15/17 03/15/17 Range/Units 14:33 14:33 14:33 WBC (4.3-11.1) K/mcL RBC (3.82-4.97) M/mcL Hgb (11.5-15.4) g/dL Hct (35.3-44.9) % MCV (83.0-100.0) fL MCH (28.0-33.3) pg MCHC (31.6-35.5) g/dL RDW (11.5-14.5) % Plt Count (140-400) K/mcL MPV (9.4-12.4) fL Seg Neutrophils % % Lymphocytes % % Monocytes % % Neutrophils # (1.6-8.9) K/mcL Lymphocytes # (0.6-4.6) K/mcL Monocytes # (0.0-1.3) K/mcL Platelet Estimate (Normal) Polychromasia (Not Present) Hypochromasia (Not Present) Target Cells (Not Present) PT (9.4-12.1) Seconds INR Sodium (136-145) mEq/L Potassium (3.5-4.5) mEq/L Chloride (98-109) mEq/L Carbon Dioxide (19-29) mEq/L BUN (7-20) mg/dL Creatinine (0.57-1.11) mg/dL Est GFR ( Amer) (> 60) Est GFR (Non-Af Amer) (> 60) BUN/Creatinine Ratio (6-26) Glucose (70-99) mg/dL Calculated Osmolality (280-300) Lactic Acid 1.0 (0.5-2.2) mmol/L Calcium (8.6-10.8) mg/dL Troponin I 0.00 (0-0.03) ng/mL B-Natriuretic Peptide 248 H (0-100) pg/mL Urine Color (Yellow) Urine Clarity (Clear) Urine pH (5.0-8.0) pH Units Ur Specific [place] (1.010-1.025) Urine Protein (Neg-Trace) mg/dL Urine Glucose (UA) (Normal) mg/dL Urine Ketones (Negative) mg/dL Urine Blood (Negative) Urine Nitrite (Negative) Urine Bilirubin (Negative) Urine Urobilinogen (Normal) mg/dL Ur Leukocyte Esterase (Negative) Urine Microscopic RBC (0-3) per hpf Urine Microscopic WBC (0-3) per hpf Ur Squamous Epith Cells (None-Few) per lpf Urine Bacteria (None-Few) per hpf Hyaline Casts (None-Few) per lpf Ur Culture Indicated? (NO) 03/15/17 Range/Units 14:33 WBC (4.3-11.1) K/mcL RBC (3.82-4.97) M/mcL Hgb (11.5-15.4) g/dL Hct (35.3-44.9) % MCV (83.0-100.0) fL MCH (28.0-33.3) pg MCHC (31.6-35.5) g/dL RDW (11.5-14.5) % Plt Count (140-400) K/mcL MPV (9.4-12.4) fL Seg Neutrophils % % Lymphocytes % % Monocytes % % Neutrophils # (1.6-8.9) K/mcL Lymphocytes # (0.6-4.6) K/mcL Monocytes # (0.0-1.3) K/mcL Platelet Estimate (Normal) Polychromasia (Not Present) Hypochromasia (Not Present) Target Cells (Not Present) PT 16.0 H (9.4-12.1) Seconds INR 1.5 Sodium (136-145) mEq/L Potassium (3.5-4.5) mEq/L Chloride (98-109) mEq/L Carbon Dioxide (19-29) mEq/L BUN (7-20) mg/dL Creatinine (0.57-1.11) mg/dL Est GFR ( Amer) (> 60) Est GFR (Non-Af Amer) (> 60) BUN/Creatinine Ratio (6-26) Glucose (70-99) mg/dL Calculated Osmolality (280-300) Lactic Acid (0.5-2.2) mmol/L Calcium (8.6-10.8) mg/dL Troponin I (0-0.03) ng/mL B-Natriuretic Peptide (0-100) pg/mL Urine Color (Yellow) Urine Clarity (Clear) Urine pH (5.0-8.0) pH Units Ur Specific [place] (1.010-1.025) Urine Protein (Neg-Trace) mg/dL Urine Glucose (UA) (Normal) mg/dL Urine Ketones (Negative) mg/dL Urine Blood (Negative) Urine Nitrite (Negative) Urine Bilirubin (Negative) Urine Urobilinogen (Normal) mg/dL Ur Leukocyte Esterase (Negative) Urine Microscopic RBC (0-3) per hpf Urine Microscopic WBC (0-3) per hpf Ur Squamous Epith Cells (None-Few) per lpf Urine Bacteria (None-Few) per hpf Hyaline Casts (None-Few) per lpf Ur Culture Indicated? (NO) - Radiology Data Radiology results reviewed: Yes I reviewed the patient's radiology results. - EKG Data EKG attestation: Yes I reviewed and interpreted this EKG. EKG results narrative: EKG done at 1470 myself and the attending shows atrial fibrillation at a rate of 121, QRS 95, QTC [address] changes, T-wave abnormalities, no signs of heart strain or hypertrophy, no signs of heart block, no signs of WPW/ Brugada syndrome. Patient's EKG is unchanged compared with old EKG done . Attestation Statement - Attestation Attestation: I examined this patient and my medical decision-making was reviewed with the Resident Physician. I agree with the documented findings, disposition and treatment plan as described except to the extent set forth below. Patient to ED with difficulty breathing. Patient was scheduled to have an outpatient PET scan today. She had trouble breathing when they laid her flat. She was sent to ED for evaluation. She has a history of a chylothorax with drainage. On examination he has diminished breath sounds. Plan. Patient with a large pleural effusion. Interventional radiology to drain. We will reevaluate following thoracentesis. Unable to perform thoracentesis secondary to his overall toe. Discussed with pulmonology who will perform thoracentesis tomorrow. Patient admitted to medicine.
[2017-03-15 14:33] LABS: Bilirubin,Urine Negative (Negative); Blood,Urine Trace (Negative); Clarity,Urine Clear (Clear); Color,Urine Yellow (Yellow); Glucose,Urine (UA) Normal (Normal); Ketones,Urine Negative (Negative); Leukocyte Esterase,Urine Negative (Negative); Nitrite,Urine Negative (Negative); Protein,Urine Negative (Neg-Trace); Specific Gravity,Urine 1.018 (1.010-1.025); Urobilinogen,Urine Normal (Normal)
[2017-03-15 14:36] LABS: Bacteria,Urine Moderate per hpf (None-Few); Hyaline Casts,Urine None Seen per lpf (None-Few); RBC,Urine 0-3 per hpf (0-3); Squamous Epithelial Cell,Urine Moderate per lpf (None-Few); WBC,Urine 0-3 per hpf (0-3)
[2017-03-15 14:51] LABS: Mean Corpuscular HGB Conc 28.4 g/dL (31.6-35.5)
[2017-03-15 14:52] LABS: Hematocrit 33.8 % (35.3-44.9); Hemoglobin 9.6 g/dL (11.5-15.4); Mean Corpuscular Hemoglobin 21.9 pg (28.0-33.3); Platelet Count 184 K/mcL (140-400); Red Blood Count 4.39 M/mcL (3.82-4.97); Red Cell Distribution Width 18.3 % (11.5-14.5)
[2017-03-15 14:54] LABS: BUN/Creatinine Ratio 28 (6-26); Blood Urea Nitrogen 23 mg/dL (7-20); Calcium 9.7 mg/dL (8.6-10.8); Carbon Dioxide 26 mEq/L (19-29); Chloride 105 mEq/L (98-109); Glucose 135 mg/dL (70-99); Osmolality,Calculated 298 (280-300); Potassium 3.8 mEq/L (3.5-4.5); Sodium 141 mEq/L (136-145); eGFR For African Americans > 60 (> 60); eGFR For Non-African Americans > 60 (> 60)
[2017-03-15 15:35] LABS: Lymphocytes # 0.7 K/mcL (0.6-4.6); Monocytes # 0.7 K/mcL (0.0-1.3); Neutrophils # 5.4 K/mcL (1.6-8.9)
[2017-03-15 15:36] LABS: Hypochromasia Present (Not Present); Target Cells 1+ (Not Present)
[2017-03-15 15:39] LABS: Platelet Estimate Slight Decrease (Normal); Polychromasia 1+ (Not Present)
[2017-03-15 18:32] LABS: INR 1.5
--- NOTE | 2017-03-15 19:25 | Internal Med History&Physical ---
<Kingston Romero - Last Filed: 03/15/17 23:37> Date of Encounter: 03/15/17 Time of Encounter: 18:00 Assessment and Plan (1) Pleural effusion Current visit: Yes Status: Acute Right-sided pleural effusion that appears larger than previously shown on imaging. Pt. reports hx of pleural effusions and this will be her fourth thoracentesis. Last procedure was March [address] Gan. Pt. was to receive PET scan today but could not lay flat. Denies home O2 use. 1.5L daily fluid restriction. Pulmonology consult and Interventional Radiology consult ordered in ED. Plan is to perform thoracentesis in the a.m. with instruction to hold Xarelto tonight and resume tomorrow following the thoracentesis. NPO at midnight. LDH in a.m. labs. Protein, culture, triglycerides, cytology, glucose, pH, cholesterol, LDH, amylase orders from pleural effusion fluids in a.m. Pt. is at high risk for further respiratory distress based on current sx, hx of previous pleural effusions, and risk factors. Observation. (2) Shortness of breath Current visit: Yes Status: Acute Acute SOB and dyspnea d/t current right-sided pleural effusion. 1-View CXR of the chest shows effusion has increased in size with adjacent mid to lower lung compressive atelectasis. No evidence of pneumothorax. No acute pulmonary process demonstrated elsewhere. Supplemental O2 w/titration and SpO2 monitoring. ` (3) HTN (hypertension) Current visit: Yes Status: Chronic Hx of chronic HTN. Monitor pt. and VS. Continue Diltiazem and Metoprolol. Qualifiers: Hypertension type: essential hypertension Qualified Code(s): I10 - Essential (primary) hypertension (4) HLD (hyperlipidemia) Current visit: Yes Status: Chronic Hx of chronic HLD. Lipid panel in a.m. labs. Continue pts. Crestor. Qualifiers: Hyperlipidemia type: pure hypercholesterolemia Qualified Code(s): E78.00 - Pure hypercholesterolemia, unspecified; E78.0 - Pure hypercholesterolemia (5) GERD (gastroesophageal reflux disease) Current visit: Yes Status: Chronic Hx of chronic GERD. Patient reports diagnosis of Barnes's esophagus. IVP Zofran Q6 PRN for nausea. Continue pts. PO Prevacid. Qualifiers: Esophagitis presence: with esophagitis Qualified Code(s): K21.0 - Gastro- esophageal reflux disease with esophagitis (6) Anemia Current visit: Yes Status: Chronic Acute on chronic iron deficiency anemia w/MCV of 77.0, MCH of 21.9, and RDW of 18.3. Pt. denies currently taking iron supplements. Monitor H/H in a.m. labs. Qualifiers: Anemia type: iron deficiency Iron deficiency anemia type: unspecified iron deficiency Qualified Code(s): D50.9 - Iron deficiency anemia, unspecified (7) Atrial fibrillation Current visit: Yes Status: Chronic Hx of chronic atrial fibrillation. Pt. states she was placed on Xarelto. Pt. currently in Afib on exam. Continue Xarelto. Continuous cardiac telemetry. Qualifiers: Atrial fibrillation type: chronic Qualified Code(s): I48.2 - Chronic atrial fibrillation (8) CHF (congestive heart failure) Current visit: Yes Status: Chronic Hx of chronic CHF. Pt. currently takes 20 mg lasix daily. 2+ bilateral pitting edema currently in LEs. 20 mg IVP lasix ordered BID. Monitor I&O and daily weight. Qualifiers: Congestive heart failure type: diastolic Congestive heart failure chronicity: acute on chronic Qualified Code(s): I50.33 - Acute on chronic diastolic (congestive) heart failure (9) DVT prophylaxis Current visit: Yes Status: Acute Continue pts. Xarelto for DVT prophylaxis. Internal Medicine - H&P: HPI Chief complaint: SOB/Dyspnea Admitted From: Emergency Dept Plans for Post Hospital Care: Home History of present illness: Ms. 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 She states she could not sleep last night d/t becoming SOB when laying down and was incontinent in bed twice d/t fluid overload. Pt. reports hx of pleural effusions of the right lung and was drained on March [address] Gan. States she was to have a PET scan this morning and could not lay flat so was sent to ED. She denies recent illness, fever, chills, nausea, vomiting, headache, cough, changes in vision, chest pain, abdominal pain, unusual bleeding, diarrhea, constipation, dizziness, lightheadedness, pre- syncope, or syncope. Past Med Surg Social Fam HX - Past Medical History Source: patient, old records reviewed Medical history: arthritis, atrial fibrillation, cancer (Endometrial >10 years ago), fibromyalgia, hyperlipidemia, hypertension, other Psychiatric history: depression - Past Surgical History Surgical History: angioplasty/stent (x1), hysterectomy (Total) - Social History Smoking Status: Never smoker Smokeless Tobacco Status: No Alcohol use: none Drug use: none Occupational status: previously employed Current living situation: Home Activity Level: Independent ambulation Recent Out of Country Travel Within the Last 8 Weeks: No Exposure or Possible Exposure to Illness During Travel: No - Family History Mother Race: Family Member Ethnicity: Non- Living Status: Age at : 83 Cause of : Complications from stroke Hx Family Cardiac Disorders: Yes (Stroke) Hx Family Endocrine Disorder: Yes (Diabetes) Hx Family Musculoskeletal Disorders: Yes (Arthritis) Father Race: Family Member Ethnicity: Non- Living Status: Age at : 83 Cause of : Stroke Hx Family Cardiac Disorders: Yes (Stroke, Afib) Hx Family Musculoskeletal Disorders: Yes (Arthritis) Sister Race: Family Member Ethnicity: Non- Living Status: Still Living Hx Family Cancer: Yes (Melanoma, Ovarian, Endometrial) Internal Medicine - H&P: Meds Multivitamin [Multi-Day Vitamins] 1 each PO DAILY 12/28/14 [History] Rivaroxaban [Xarelto] 20 mg PO DAILY 09/27/16 [History] Acetaminophen [Tylenol Arthritis] 650 mg PO Q12H PRN 11/26/16 [History] Clopidogrel [Plavix] 75 mg PO DAILY 11/26/16 [History] Furosemide [Lasix] 20 - 40 mg PO DAILY 11/26/16 [History] Lansoprazole [Prevacid] 30 mg PO QAM 11/26/16 [History] Rosuvastatin Calcium [Crestor] 10 mg PO HS 11/26/16 [History] Diltiazem HCl [Diltiazem ER] 360 mg PO DAILY 12/19/16 [History] Metoprolol XL (24 HR) Succ [Toprol Xl] 25 mg PO BID 12/19/16 [History] 3 Allergy/AdvReac Type Severity Reaction Status Date / Time simvastatin [From Zocor] Allergy Hives Verified 12/19/16 11:34 Estrogens AdvReac See Verified 12/19/16 11:34 Comments All Systems PM: A 10-system review of systems was performed and is negative for pertinent findings except as documented above in the HPI. - Constitutional Constitutional: no chills, no fever(s), no night sweats - EENT Eyes: no change in vision, no discharge, no pain, no photophobia Ears: no ear discharge, no ear pain, no tinnitus Nose, mouth and throat: no dysphagia, no nasal discharge, no neck pain, no sore throat - Breasts Breasts: as per HPI - Cardiovascular Cardiovascular ROS IM: as per HPI, dyspnea, dyspnea on exertion, edema (2+ pitting bilateral pedal edema), irregular heart rhythm (Chronic Afib), orthopnea - Respiratory Respiratory: as per HPI, dyspnea, dyspnea on exertion - Gastrointestinal Gastrointestinal: no abdominal pain, no diarrhea, no hematemesis, no hematochezia, no melena, no nausea, no vomiting - Genitourinary Genitourinary: as per HPI, urinary incontinence Menstruation: as per HPI, post hysterectomy - Musculoskeletal Musculoskeletal ROS IM: as per HPI, arthralgias, myalgias - Integumentary Integumentary IM: no rash, no unusual bruising - Neurological Neurological ROS: no confusion, no convulsions, no focal weakness, no numbness, no tingling, no tremor(s) - Psychiatric Psychiatric: as per HPI - Endocrine Endocrine IM: as per HPI - Hematologic/Lymphatic Hematologic/Lymphatic: no easy bruising - Allergic/Immunologic Allergic/Immunologic: as per HPI - Constitutional Vitals: Temp Pulse Resp BP Pulse Ox 97.7 F 114 16 132/86 96 03/15/17 13:48 03/15/17 15:20 03/15/17 16:44 03/15/17 16:44 03/15/17 15:20 General appearance: Present: cooperative, A&O X 3, morbidly obese, pleasant, no acute distress, answers questions appropriately - Head Head exam: Present: atraumatic, normal inspection, normocephalic - Eye Eye exam: Present: PERRL, conjuntiva pink, sclera anicteric Pupils: Present: PERRL - ENT ENT exam: Present: normal exam, normal external ear exam - Neck Neck exam general surgery: Present: normal inspection, supple, trachea midline. Absent: lymphadenopathy - Respiratory Respiratory exam: Present: decreased breath sounds (Right lung all lobes). Absent: accessory muscle use, rales, rhonchi, wheezes - Cardiovascular Cardiovascular exam: Present: irregular rhythm (Atrial fibrillation) - GI/Abdominal GI/Abdominal exam: Present: normal bowel sounds, soft, no peritoneal signs. Absent: distended, tenderness - Rectal Rectal exam: Present: deferred - Additional comments: exam deferred. - Extremities Exam Extremities exam: Present: pedal edema (2+ pitting bilateral LEs), warm, radial pulses palpable and symmetrical - Back Exam Back exam: Present: normal inspection - Neurological Exam Neurological exam: Present: CN II-XII intact, oriented X3, no focal deficits. Absent: pronater drift, facial droop, speech deficit - Psychiatric Psychiatric exam: Present: normal affect, normal mood - Skin Skin exam: Present: dry, intact Internal Med - H&P Results - Labs CBC & Chem 7: 03/15/17 14:33 03/15/17 14:33 - Diagnostic Studies Chest x-ray Additional comments: Impressions Chest X-Ray 03/15/17 14:02 IMPRESSION: Increased size of a moderate to large pleural effusion, with adjacent compressive atelectasis of the mid to lower lung. D/ / Jeff Reed MD / Jeff Reed MD Interpreting Provider: Jeff Reed MD <Drew Merino - Last Filed: 03/16/17 06:34> Date of Encounter: 03/16/17 Internal Medicine - H&P: HPI History of present illness: Ms. Dustin Lopez is a 71 year old female All Systems PM: A 10-system review of systems was performed and is negative for pertinent findings except as documented above in the HPI. - Constitutional Vitals: Temp Pulse Resp BP Pulse Ox 98.8 F 102 18 107/66 96 03/16/17 03:48 03/16/17 03:48 03/16/17 03:48 03/16/17 03:48 03/16/17 03:48 Internal Med - H&P Results - Labs CBC & Chem 7: 03/16/17 03:46 03/16/17 03:46 Labs: Short CBC 03/16/17 Range/Units 03:46 WBC 5.5 (4.3-11.1) K/mcL Hgb 8.5 L (11.5-15.4) g/dL Hct 30.0 L (35.3-44.9) % Plt Count 182 (140-400) K/mcL Neutrophils # 3.9 (1.6-8.9) K/mcL BMP 03/16/17 03:46 Sodium 142 Potassium 3.8 Chloride 104 Carbon Dioxide 30 H BUN 23 H Creatinine 0.79 Glucose 83 Calcium 9.6 Liver Function 03/16/17 Range/Units 03:46 Total Bilirubin 0.7 (0.2-1.2) mg/dL AST 14 (5-34) Units/L ALT 12 (0-55) Units/L Alkaline Phosphatase 76 (38-126) Units/L Albumin 3.3 L (3.5-5.0) g/dL - Attending Attestation I conducted a face to face diagnostic evaluation of this patient and my medical decision-making was reviewed with the Nurse Practitioner. I agree with the documented findings, disposition and treatment plan as described except to the extent set forth below: Echocardiogram from 12/19/2016 showed Ejection Fraction of 50% with Indeterminate Diastolic Dysfunction. Lung Examination Reveals Decreased Breath Sounds on the Right Side and 2+ Lower Extremity Pitting Edema.
[2017-03-15] MEDS ORDERED: *HR* HYDROcodone/Acet 5/325 mg TABLET PO PRN (19:55)
[2017-03-15] MEDS ORDERED: Ondansetron 4 MG/2 ML VIAL IVP PRN (19:55)
[2017-03-15] MEDS ORDERED: Naloxone 0.4 MG/ML INJ IVP PRN (19:55)
[2017-03-15] MEDS ORDERED: Acetaminophen 325 MG TABLET PO PRN (19:58)
[2017-03-15] MEDS: Metoprolol XL (24 HR) Succ 25 MG TAB.ER.24H PO SCH (21:05)
[2017-03-15] MEDS: Furosemide 20 MG/2 ML VIAL IVP SCH (23:46)
[2017-03-16 05:28] LABS: Eosinophils % 0.7 %; Hemoglobin 8.5 g/dL (11.5-15.4)
[2017-03-16 05:30] LABS: Basophils % 0.6 %; Immature Granulocytes % 0.7 % (0-4); Lymphocytes # 0.8 K/mcL (0.6-4.6); Lymphocytes % 14.1 %; Mean Corpuscular HGB Conc 28.3 g/dL (31.6-35.5); Mean Corpuscular Hemoglobin 21.5 pg (28.0-33.3); Mean Corpuscular Volume 75.9 fL (83.0-100.0); Mean Platelet Volume 11.5 fL (9.4-12.4); Monocytes # 0.7 K/mcL (0.0-1.3); Monocytes % 12.7 %; Neutrophils # 3.9 K/mcL (1.6-8.9); Platelet Count 182 K/mcL (140-400); Red Blood Count 3.95 M/mcL (3.82-4.97); Red Cell Distribution Width 18.2 % (11.5-14.5); Segmented Neutrophils % 71.2 %
[2017-03-16 05:32] LABS: Hemoglobin A1C 5.7 %
[2017-03-16 05:38] LABS: INR 1.4; Prothrombin Time 14.8 Seconds (9.4-12.1)
[2017-03-16 05:41] LABS: Activated Partial Thrombo Time 27.7 Seconds (26.0-36.0)
[2017-03-16 05:48] LABS: Alanine Aminotransferase 12 Units/L (0-55); Albumin 3.3 g/dL (3.5-5.0); Alkaline Phosphatase 76 Units/L (38-126); Aspartate Amino Transferase 14 Units/L (5-34); BUN/Creatinine Ratio 29 (6-26); Bilirubin,Total 0.7 mg/dL (0.2-1.2); Blood Urea Nitrogen 23 mg/dL (7-20); Calcium 9.6 mg/dL (8.6-10.8); Carbon Dioxide 30 mEq/L (19-29); Chloride 104 mEq/L (98-109); Chol/HDL Ratio 3.3 (0-4.9); Cholesterol 98 mg/dL (< 200); Globulin 3.2 g/dL (2.4-3.5); Glucose 83 mg/dL (70-99); HDL Cholesterol 30 mg/dL (40-59); LDL Cholesterol,Calculated 54 mg/dL (0-99); Magnesium 1.7 mg/dL (1.6-2.6); Osmolality,Calculated 297 (280-300); Potassium 3.8 mEq/L (3.5-4.5); Sodium 142 mEq/L (136-145); Total Protein 6.5 g/dL (6.0-8.3); Triglycerides 70 mg/dL (< 150); eGFR For African Americans > 60 (> 60); eGFR For Non-African Americans > 60 (> 60)
[2017-03-16 06:23] LABS: Hypochromasia Present (Not Present); Ovalocytes 1+ (Not Present); Poikilocytosis 1+ (Not Present)
[2017-03-16 06:24] LABS: Anisocytosis 1+ (Not Present); Large Platelets Present (Not Present); Platelet Estimate Normal (Normal); Target Cells 1+ (Not Present)
[2017-03-16 06:25] LABS: Macrocytosis Present (Not Present)
[2017-03-16 08:27] LABS: % Iron Saturation 3 % (15-50); Iron 15 mcg/dL (50-170); Transferrin 314 mg/dL (180-382)
[2017-03-16] MEDS ORDERED: *HR* Rivaroxaban 10 MG TABLET PO SCH (09:00)
[2017-03-16] MEDS ORDERED: Diltiazem CD (24hr) 180 MG CAPSULE PO SCH (09:00)
[2017-03-16] MEDS ORDERED: Multivit/Ca/Min/Fe/FA 1 TAB TABLET PO SCH (09:00)
[2017-03-16 09:02] LABS: Folate 18.1 ng/mL (7.0-31.4)
[2017-03-16] MEDS: Metoprolol XL (24 HR) Succ 25 MG TAB.ER.24H PO SCH (09:05)
--- NOTE | 2017-03-16 09:06 | Procedure Note ---
<Eladio Gray - Last Filed: 03/16/17 08:59> Date of procedure: 03/16/17 Pre-op diagnosis: Pleural Effusion Post-op diagnosis: same Procedure: Thoracentesis: Written consent was obtained from the patient. Timeout was performed to verify patient and procedure. The right posterior chest wall was surveyed using ultrasound and a large pleural effusion was identified. The skin was marked and and the patient was cleaned and draped in the usual sterile fashion. The skin and soft tissues were anesthetized using 1% lidocaine. A heriberto in the skin was made and the catheter over needle apparatus was advanced into the pleural space. The needle was removed intact. Approximately 1.4 L of light brown milky fluid was withdrawn. The catheter was then removed intact. 2 x 2 and Tegaderm were applied. The patient tolerated the procedure well. Fluid was sent to the lab for cytology. Postprocedure chest x-ray is pending. The patient tolerated the procedure well, there were no immediate complications. The attending physician, Dr. Gan, was present for the entire procedure. Anesthesia: local (10cc 1% lidocaine) Surgeon: Eladio Gray Pathology: other (fluid sent for cytology) Condition: stable Disposition: floor <Julio Gan - Last Filed: 03/16/17 09:46> Procedure: I examined this patient and my medical decision-making was reviewed with the Resident Physician. I agree with the documented findings, disposition and treatment plan as described except to the extent set forth below. I have personally advised resident performing thoracentesis without immediate complications.
--- NOTE | 2017-03-16 09:14 | Pulmonology Consult Note ---
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 Patient is asking for treatment and thoracentesis which was done with relief and improvement of dyspnea. All the risks, alternative, benefits of the procedure as explained to the patient prior thoracentesis was done. I have told patient she can go home and this was discussed with primary team if no complications postprocedure. I also advised her prior to her PET scan as outpatient she will need a thoracentesis or even Pleurx pleural catheter then hopefully she will be able to tolerate the PET scan. This is still unknown why she has this problem and PET scan might help if there is any abnormalities. Thank you for consultation and patient will follow-up as outpatient. 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 Patient felt better after the procedure. History of Present Illness Consult date: 03/16/17 Requesting physician: Gulshan Lainez Reason for consult: dyspnea, pleural effusion Chief complaint: Shortness of breath History of present illness: This is a pleasant 71-year-old female with known history of recurrent pleural effusion with chylothorax and she was going to have a PET scan as outpatient for further workup for this problem, unfortunately she was not able to lie down for the procedure. Patient had worsening shortness of breath and she felt the fluid is building up and she was sent to emergency room for treatment. Patient was on the coagulation for that reason procedure was not done. She was told previously she would have recurrent pleural effusion and PleurX pleural catheter was offered to her. She denies any fever or chills. She denies any hemoptysis. She denies any other complaint. Past Med Surg Social Fam HX - Past Medical History Medical history: arthritis, atrial fibrillation, cancer (Endometrial >10 years ago), fibromyalgia, hyperlipidemia, hypertension, other Psychiatric history: depression - Past Surgical History Surgical History: angioplasty/stent (x1), hysterectomy (Total) - Social History Smoking Status: Never smoker Smokeless Tobacco Status: No Alcohol use: none Drug use: none - Family History Mother Race: Family Member Ethnicity: Non- Living Status: Age at : 83 Cause of : Complications from stroke Hx Family Cardiac Disorders: Yes (Stroke) Hx Family Cancer: Yes Hx Family Endocrine Disorder: Yes (Diabetes) Hx Family Musculoskeletal Disorders: Yes (Arthritis) Hx Family Neurologic Disorders: Yes (Stroke) Father Race: Family Member Ethnicity: Non- Living Status: Age at : 83 Cause of : Stroke Hx Family Cardiac Disorders: Yes (Stroke, Afib) Hx Family Musculoskeletal Disorders: Yes (Arthritis) Sister Race: Family Member Ethnicity: Non- Living Status: Still Living Hx Family Cancer: Yes (Melanoma, Ovarian, Endometrial) Medications and Allergies Multivitamin [Multi-Day Vitamins] 1 each PO DAILY 12/28/14 [History] Rivaroxaban [Xarelto] 20 mg PO DAILY 09/27/16 [History] Acetaminophen [Tylenol Arthritis] 650 mg PO Q12H PRN 11/26/16 [History] Clopidogrel [Plavix] 75 mg PO DAILY 11/26/16 [History] Furosemide [Lasix] 20 - 40 mg PO DAILY 11/26/16 [History] Lansoprazole [Prevacid] 30 mg PO QAM 11/26/16 [History] Rosuvastatin Calcium [Crestor] 10 mg PO HS 11/26/16 [History] Diltiazem HCl [Diltiazem ER] 360 mg PO DAILY 12/19/16 [History] Metoprolol XL (24 HR) Succ [Toprol Xl] 25 mg PO BID 12/19/16 [History] 3 Allergy/AdvReac Type Severity Reaction Status Date / Time simvastatin [From Zocor] Allergy Hives Verified 12/19/16 11:34 Estrogens AdvReac See Verified 12/19/16 11:34 Comments All Systems: A 10-system review of systems was performed and is negative for pertinent findings except as documented above in the HPI. Physical Examination Vital Signs: Vital Signs, Last 4 Hours Temp Pulse Resp BP Pulse Ox 03/16/17 07:15 98.0 F 105 16 105/68 94 General appearance: appears uncomfortable Eyes: nonicteric ENT: oropharynx moist Mallampati (class): 3 Neck: supple Effort: normal Inspection: normal Auscultation: left: clear, right: diminished breath sounds Percussion: left: not dull, right: dull Cardiovascular: regular rate and rhythm Gastrointestinal: normoactive bowel sounds, non-distended Extremities: no cyanosis, no edema normal mental status, non-focal exam mood appropriate Results - Laboratory Findings CBC and BMP: 03/16/17 03:46 03/16/17 03:46 PT/INR, D-dimer PT 14.8 Seconds (9.4-12.1) H 03/16/17 03:46 Abnormal lab findings: Abnormal lab results Hgb 8.5 g/dL (11.5-15.4) L 03/16/17 03:46 Hct 30.0 % (35.3-44.9) L 03/16/17 03:46 MCV 75.9 fL (83.0-100.0) L 03/16/17 03:46 MCH 21.5 pg (28.0-33.3) L 03/16/17 03:46 MCHC 28.3 g/dL (31.6-35.5) L 03/16/17 03:46 RDW 18.2 % (11.5-14.5) H 03/16/17 03:46 Large Platelets Present (Not Present) A 03/16/17 03:46 Polychromasia 1+ (Not Present) A 03/15/17 14:33 Hypochromasia Present (Not Present) A 03/16/17 03:46 Poikilocytosis 1+ (Not Present) A 03/16/17 03:46 Anisocytosis 1+ (Not Present) A 03/16/17 03:46 Macrocytosis Present (Not Present) A 03/16/17 03:46 Target Cells 1+ (Not Present) A 03/16/17 03:46 Ovalocytes 1+ (Not Present) A 03/16/17 03:46 PT 14.8 Seconds (9.4-12.1) H 03/16/17 03:46 Carbon Dioxide 30 mEq/L (19-29) H 03/16/17 03:46 BUN 23 mg/dL (7-20) H 03/16/17 03:46 BUN/Creatinine Ratio 29 (6-26) H 03/16/17 03:46 Hemoglobin A1c 5.7 % (-5.6) H 03/16/17 03:46 Iron 15 mcg/dL (50-170) L 03/16/17 08:00 % Saturation 3 % (15-50) L 03/16/17 08:00 Lactate Dehydrogenase 128 Units/L (159-327) L 03/16/17 03:46 B-Natriuretic Peptide 248 pg/mL (0-100) H 03/15/17 14:33 Albumin 3.3 g/dL (3.5-5.0) L 03/16/17 03:46 Albumin/Globulin Ratio 1.0 (1.1-2.2) L 03/16/17 03:46 HDL Cholesterol 30 mg/dL (40-59) L 03/16/17 03:46 Urine Blood Trace (Negative) H 03/15/17 14:26 Ur Squamous Epith Cells Moderate per lpf (None-Few) H 03/15/17 14:26 Urine Bacteria Moderate per hpf (None-Few) H 03/15/17 14:26 - Diagnostic Findings Chest x-ray: report reviewed, image reviewed - Clinical Findings Intake & Output: Intake & Output 03/15/17 03/16/17 03/16/17 23:59 07:59 15:59 Intake Total 240 / 240 Balance 240 / 240 Weight 94.574 kg Consult Discharge Plan - Plan Referrals: Kavon Castaneda MD [Primary Care Provider] -
[2017-03-16] MEDS: Furosemide 20 MG/2 ML VIAL IVP SCH (09:15)
[2017-03-16 11:31] VITALS: BP 114/73
--- NOTE | 2017-03-16 11:46 | Discharge Summary ---
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 Patient has new history of pleural effusions this year and has had 4 thoracenteses this year. Patient was supposed to have a PET scan today could not lie flat. She is on a 1.5 L fluid restriction. She was seen by pulmonology who did a pleural effusion and discovered the chylothorax. Pulmonology recommends that she reschedule and have the PET scan as an outpatient and may need a thoracentesis or even a pleural catheter to be able to tolerate the PET scan. Patient tolerated the thoracentesis well, repeat chest x-ray showed decrease in size of right pleural effusion without pneumothorax. Chest X-Ray 03/16/17 08:35 IMPRESSION: Interval decrease in size of right pleural effusion. No pneumothorax. 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 (3) HTN (hypertension) Priority: Secondary Status: Chronic Comments: Well controlled. Continue home medications. Qualifiers: Hypertension type: essential hypertension Qualified Code(s): I10 - Essential (primary) hypertension (4) Shortness of breath Priority: Secondary Status: Resolved Comments: Resolved. Patient is no longer short of breath, she has not required several oxygen. (5) HLD (hyperlipidemia) Priority: Secondary Status: Chronic Comments: Chronic. Continue medication. Qualifiers: Hyperlipidemia type: pure hypercholesterolemia Qualified Code(s): E78.00 - Pure hypercholesterolemia, unspecified; E78.0 - Pure hypercholesterolemia (6) GERD (gastroesophageal reflux disease) Priority: Secondary Status: Chronic Comments: Chronic. Continue home medication. Qualifiers: Esophagitis presence: with esophagitis Qualified Code(s): K21.0 - Gastro- esophageal reflux disease with esophagitis (7) Anemia Priority: Secondary Status: Chronic Comments: Patient with chronic anemia since June,. Hemoglobin is 8.5 today. This appears to be near patient's baseline, slightly decreased. Patient with chronic iron deficiency anemia MCV of 77.0. She is currently not taking any iron supplements. Will restart them again. Patient will need to follow-up with primary care for continued monitoring and lab values. I discussed with pt staying for a repeat lab and iron infusion, pt was indecisive initially, then states that she is tired of being stuck with needles and just wants to go home. She declined iron infusion, further testing or evaluation. I have given her a prescription for Ferrous Sulfate and an order for a lab draw in 3 days. Pt was agreeable. Qualifiers: Anemia type: iron deficiency Iron deficiency anemia type: unspecified iron deficiency Qualified Code(s): D50.9 - Iron deficiency anemia, unspecified - Discharge Medications Prescriptions: Ferrous Sulfate 325 mg PO BIDWM #60 tablet Home Medications: Multivitamin [Multi-Day Vitamins] 1 each PO DAILY 12/28/14 [History] Rivaroxaban [Xarelto] 20 mg PO DAILY 09/27/16 [History] Acetaminophen [Tylenol Arthritis] 650 mg PO Q12H PRN 11/26/16 [History] Clopidogrel [Plavix] 75 mg PO DAILY 11/26/16 [History] Furosemide [Lasix] 20 - 40 mg PO DAILY 11/26/16 [History] Lansoprazole [Prevacid] 30 mg PO QAM 11/26/16 [History] Rosuvastatin Calcium [Crestor] 10 mg PO HS 11/26/16 [History] Diltiazem HCl [Diltiazem ER] 360 mg PO DAILY 12/19/16 [History] Metoprolol XL (24 HR) Succ [Toprol Xl] 25 mg PO BID 12/19/16 [History] Ferrous Sulfate 325 mg PO BIDWM #60 tablet 03/16/17 [Rx] Allergies/Adverse Reactions: 3 Allergy/AdvReac Type Severity Reaction Status Date / Time simvastatin [From Zocor] Allergy Hives Verified 12/19/16 11:34 Estrogens AdvReac See Verified 12/19/16 11:34 Comments Date of admission: 03/15/17 15:35 Primary care physician: Kavon Castaneda MD Discharging clinician: Luanne Garrido Anticipated date of discharge: 03/16/17 - Patient Status Disposition: Home, Self-Care Condition: Fair Functional capacity at discharge: independent ambulation Overall status at discharge: patient is back to baseline - Discharge Instructions Follow Up With: Kavon Castaneda MD [Primary Care Provider] - Additional Instructions: Please follow up with your PCP BABATUNDE for evaluation of anemia and recheck of hospital visit. Return to the ER immediately if your symptoms return or worsen. Resume your home medications and start Iron supplements today. Take iron with Vit C to enhance absorption and take with stool softener. Resume your normal activities as tolerated and diet. - Diet and Activity Activity: increase activity as tolerated Diet: advance to your usual diet Interval History: Please see assessment and plan for hospital course. Hospital course: Ms. Dustin Lopez is a 71 year old female - Time Spent with Patient Total time spent providing and/or coordinating discharge services: - Constitutional Vitals: Temp Pulse Resp BP Pulse Ox 98.3 F 112 16 114/73 99 03/16/17 11:30 03/16/17 11:30 03/16/17 11:30 03/16/17 11:30 03/16/17 11:30 General appearance: Present: cooperative, A&O X 3, morbidly obese, pleasant, no acute distress, answers questions appropriately - Head Head exam: Present: atraumatic, normal inspection, normocephalic - Eye Eye exam: Present: normal appearance, conjuntiva pink, sclera anicteric - Neck Neck exam general surgery: Present: supple, trachea midline. Absent: lymphadenopathy, tenderness - Respiratory Respiratory exam: Present: decreased breath sounds, CTAB. Absent: accessory muscle use, chest wall tenderness, rales, respiratory distress, rhonchi, wheezes - Cardiovascular Cardiovascular exam: Present: RRR, +S1, +S2. Absent: diastolic murmur, gallop, rubs, systolic murmur - GI/Abdominal GI/Abdominal exam: Present: hepatomegaly, normal bowel sounds, soft, no peritoneal signs. Absent: distended, tenderness - Extremities Exam Extremities exam: Present: normal capillary refill, normal inspection, warm, radial pulses palpable and symmetrical. Absent: calf tenderness, cyanotic, pedal edema, tenderness - Neurological Exam Neurological exam: Present: alert, oriented X3, no focal deficits. Absent: facial droop, speech deficit - Skin Skin exam: Present: dry, intact, normal color, warm. Absent: rash
[2017-03-16] MEDS ORDERED: Ferumoxytol 510 MG in 0.9 % Sodium Chloride 100 ML IVPB ONE (12:21)
--- NOTE | 2017-03-17 10:12 | Electrocardiograph Report ---
[facility] Test Date: 2017-03-15 Pat Name: Leonor Lopez Department: 102 Room: 3B39 Gender: F [employer]: : 1945 Requested By: Gulshan Lainez Order Number: [id number] Kevin MD: Rojelio Ratliff MD Measurements Intervals [place] Rate: 121 P: [place]: 0 QRS: 39 QRSD: 95 T: 0 QT: 303 QTc: 375 Interpretive Statements ATRIAL FIBRILLATION WITH RAPID VENTRICULAR RESPONSE NONSPECIFIC T-WAVE ABNORMALITY ABNORMAL RHYTHM ECG Electronically Signed On 03-17-2017 10:10:50 EST by Rojelio Ratliff MD
== END 2017-03-16 13:00 | disposition home or self-care (01) ==
LOC: 3BNU 13:11 → EMEROO 13:11 → 3BNU 18:34
PROVIDERS: ADMIT Registered Nurse; ATTEND Registered Nurse

== ENCOUNTER 2019-11-09 20:35 | Inpatient (IN) ==
[2019-11-10] MEDS ORDERED: Perflutren Lipid Microsphere 1.3 ML in 0.9 % Sodium Chloride 8.7 ML IVP PRN (00:31)
[2019-11-10] MEDS ORDERED: Isovue-370 500 ML BOTTLE IVP ONE (00:32)
[2019-11-10] MEDS ORDERED: *HR* LORazepam 2 MG/ML VIAL IVP PRN (00:32)
[2019-11-10] MEDS: Acetaminophen 325 MG TABLET PO PRN ×2 (06:26→20:50)
[2019-11-10] MEDS: Furosemide 40 MG/4 ML VIAL IVP SCH ×2 (07:41→20:50)
[2019-11-10 08:30] LABS: Basophils % 0.3 %; Eosinophils % 0.3 %; Hematocrit 37.2 % (35.3-44.9); Hemoglobin 11.2 g/dL (11.5-15.4); Immature Granulocytes % 0.2 % (0-4); Lymphocytes # 0.6 K/mcL (0.6-4.6); Lymphocytes % 9.3 %; Mean Corpuscular HGB Conc 30.1 g/dL (31.6-35.5); Mean Corpuscular Hemoglobin 26.4 pg (28.0-33.3); Mean Corpuscular Volume 87.7 fL (83.0-100.0); Mean Platelet Volume 9.7 fL (9.4-12.4); Monocytes # 0.8 K/mcL (0.0-1.3); Monocytes % 12.7 %; Neutrophils # 4.6 K/mcL (1.6-8.9); Platelet Count 245 K/mcL (140-400); Red Blood Count 4.24 M/mcL (3.82-4.97); Red Cell Distribution Width 16.3 % (11.5-14.5); Segmented Neutrophils % 77.2 %
[2019-11-10 08:41] LABS: Albumin 3.6 g/dL (3.5-5.7); Albumin/Globulin Ratio 1.1 (1.1-2.2); Bilirubin,Total 0.6 mg/dL (0.3-1.0); Calcium 9.9 mg/dL (8.6-10.3); Globulin 3.3 g/dL (2.4-3.5); Potassium 4.9 mEq/L (3.5-5.1); Total Protein 6.9 g/dL (6.4-8.9)
[2019-11-10] MEDS: *HR* Rivaroxaban 10 MG TABLET PO SCH (15:11)
[2019-11-10] MEDS: DilTIAZem CD (24hr) 180 MG CAP.ER.24H PO SCH (15:12)
[2019-11-10] MEDS: Metoprolol XL (24 HR) Succ 25 MG TAB.ER.24H PO SCH (17:27)
[2019-11-10] MEDS ORDERED: Metoprolol XL (24 HR) Succ 25 MG TAB.ER.24H PO SCH (21:00)
[2019-11-10] MEDS ORDERED: *HR* LORazepam 2 MG/ML VIAL IVP ONE (21:44)
[2019-11-11] MEDS: Acetaminophen 325 MG TABLET PO PRN (03:05)
[2019-11-11 05:16] LABS: Basophils % 0.3 %; Eosinophils % 0.5 %; Hematocrit 36.2 % (35.3-44.9); Hemoglobin 11.3 g/dL (11.5-15.4); Immature Granulocytes % 0.2 % (0-4); Lymphocytes # 0.7 K/mcL (0.6-4.6); Lymphocytes % 11.9 %; Mean Corpuscular HGB Conc 31.2 g/dL (31.6-35.5); Mean Corpuscular Hemoglobin 27.3 pg (28.0-33.3); Mean Corpuscular Volume 87.4 fL (83.0-100.0); Mean Platelet Volume 10.1 fL (9.4-12.4); Monocytes # 0.8 K/mcL (0.0-1.3); Monocytes % 13.9 %; Neutrophils # 4.3 K/mcL (1.6-8.9); Platelet Count 240 K/mcL (140-400); Red Blood Count 4.14 M/mcL (3.82-4.97); Red Cell Distribution Width 16.3 % (11.5-14.5); Segmented Neutrophils % 73.2 %; White Blood Count 5.8 K/mcL (4.3-11.1)
[2019-11-11 05:36] LABS: BUN/Creatinine Ratio 38 (6-26); Blood Urea Nitrogen 41 mg/dL (8-23); Calcium 9.9 mg/dL (8.6-10.3); Carbon Dioxide 29 mEq/L (23-29); Chloride 92 mEq/L (98-107); Glucose 103 mg/dL (70-105); Osmolality,Calculated 278 (280-300); Potassium 4.2 mEq/L (3.5-5.1); Sodium 129 mEq/L (136-145); eGFR For African Americans > 60 (> 60); eGFR For Non-African Americans 51 (> 60)
[2019-11-11] MEDS ORDERED: Albumin 25% 25gram/100mL 25 GM/100 ML IV.SOLN IVPB ONE (12:13)
[2019-11-11] MEDS: DilTIAZem CD (24hr) 180 MG CAP.ER.24H PO SCH (16:19)
[2019-11-11] MEDS: Furosemide 40 MG/4 ML VIAL IVP SCH ×2 (16:19→21:31)
[2019-11-11] MEDS: Loratadine 10 MG TABLET PO SCH (16:19)
[2019-11-11] MEDS: Metoprolol XL (24 HR) Succ 25 MG TAB.ER.24H PO SCH ×2 (16:20→21:41)
[2019-11-11] MEDS: *HR* Rivaroxaban 10 MG TABLET PO SCH (16:20)
[2019-11-11] MEDS ORDERED: Metoprolol XL (24 HR) Succ 25 MG TAB.ER.24H PO ONE (17:22)
[2019-11-12] MEDS ORDERED: *HR* Metoprolol 5 MG/5 ML VIAL IVP ONE ×2 (01:52→03:30)
[2019-11-12 02:07] LABS: Basophils % 0.3 %; Hematocrit 37.1 % (35.3-44.9); Hemoglobin 11.6 g/dL (11.5-15.4); Immature Granulocytes % 0.1 % (0-4); Lymphocytes # 0.5 K/mcL (0.6-4.6); Lymphocytes % 7.4 %; Mean Corpuscular HGB Conc 31.3 g/dL (31.6-35.5); Mean Corpuscular Volume 86.5 fL (83.0-100.0); Mean Platelet Volume 10.2 fL (9.4-12.4); Monocytes # 0.7 K/mcL (0.0-1.3); Neutrophils # 5.8 K/mcL (1.6-8.9); Platelet Count 248 K/mcL (140-400); Red Blood Count 4.29 M/mcL (3.82-4.97); Red Cell Distribution Width 16.5 % (11.5-14.5); Segmented Neutrophils % 82.2 %
[2019-11-12 02:13] LABS: Calcium 10.1 mg/dL (8.6-10.3); Potassium 4.1 mEq/L (3.5-5.1)
[2019-11-12] MEDS: Acetaminophen 325 MG TABLET PO PRN ×3 (04:35→21:11)
[2019-11-12] MEDS: Furosemide 40 MG/4 ML VIAL IVP SCH (08:54)
[2019-11-12] MEDS: Metoprolol XL (24 HR) Succ 25 MG TAB.ER.24H PO SCH ×3 (08:55→21:06)
[2019-11-12] MEDS ORDERED: 0.9 % Sodium Chloride 250 ML IVC SCH ×2 (09:00)
[2019-11-12] MEDS: Loratadine 10 MG TABLET PO SCH (09:22)
[2019-11-12] MEDS: *HR* Rivaroxaban 10 MG TABLET PO SCH (09:22)
[2019-11-12] MEDS: DilTIAZem CD (24hr) 180 MG CAP.ER.24H PO SCH (09:22)
[2019-11-13] MEDS: Acetaminophen 325 MG TABLET PO PRN ×2 (03:47→23:32)
[2019-11-13 05:24] LABS: Basophils % 0.4 %; Eosinophils # 0.1 K/mcL (0.0-0.6); Eosinophils % 0.7 %; Hemoglobin 11.5 g/dL (11.5-15.4); Immature Granulocytes % 0.2 % (0-4); Lymphocytes # 0.9 K/mcL (0.6-4.6); Lymphocytes % 10.8 %; Mean Corpuscular HGB Conc 30.3 g/dL (31.6-35.5); Mean Corpuscular Hemoglobin 26.6 pg (28.0-33.3); Mean Platelet Volume 10.7 fL (9.4-12.4); Monocytes # 0.9 K/mcL (0.0-1.3); Monocytes % 11.2 %; Neutrophils # 6.5 K/mcL (1.6-8.9); Platelet Count 265 K/mcL (140-400); Red Blood Count 4.32 M/mcL (3.82-4.97); Red Cell Distribution Width 16.6 % (11.5-14.5); Segmented Neutrophils % 76.7 %; White Blood Count 8.4 K/mcL (4.3-11.1)
[2019-11-13 05:43] LABS: Calcium 9.3 mg/dL (8.6-10.3); Potassium 4.2 mEq/L (3.5-5.1)
[2019-11-13] MEDS: DilTIAZem CD (24hr) 180 MG CAP.ER.24H PO SCH (08:09)
[2019-11-13] MEDS: *HR* Rivaroxaban 10 MG TABLET PO SCH (08:09)
[2019-11-13] MEDS: Loratadine 10 MG TABLET PO SCH (08:09)
[2019-11-13] MEDS: Torsemide 20 MG TABLET PO SCH (08:13)
[2019-11-13] MEDS: Metoprolol XL (24 HR) Succ 25 MG TAB.ER.24H PO SCH ×2 (12:22→21:06)
[2019-11-13] MEDS: traZODone 50 MG TABLET PO SCH (21:06)
[2019-11-14 05:40] LABS: Calcium 9.1 mg/dL (8.6-10.3); Potassium 4.5 mEq/L (3.5-5.1)
[2019-11-14] MEDS: DilTIAZem CD (24hr) 180 MG CAP.ER.24H PO SCH (08:09)
[2019-11-14] MEDS: Torsemide 20 MG TABLET PO SCH (08:10)
[2019-11-14] MEDS: Loratadine 10 MG TABLET PO SCH (08:11)
[2019-11-14] MEDS: *HR* Rivaroxaban 10 MG TABLET PO SCH (08:11)
[2019-11-14] MEDS: Metoprolol XL (24 HR) Succ 25 MG TAB.ER.24H PO SCH ×2 (08:11→20:54)
[2019-11-14] MEDS: traZODone 50 MG TABLET PO SCH (23:55)
[2019-11-15] MEDS: Acetaminophen 325 MG TABLET PO PRN (00:32)
[2019-11-15 03:01] LABS: Calcium 9.8 mg/dL (8.6-10.3); Potassium 5.2 mEq/L (3.5-5.1)
[2019-11-15 09:39] LABS: INR 1.9; Prothrombin Time 21.4 Seconds (9.4-12.1)
[2019-11-15] MEDS ORDERED: Ondansetron 4 MG/2 ML VIAL IVP PRN (09:39)
[2019-11-15] MEDS: DilTIAZem CD (24hr) 180 MG CAP.ER.24H PO SCH (09:50)
[2019-11-15] MEDS: Metoprolol XL (24 HR) Succ 25 MG TAB.ER.24H PO SCH ×2 (09:50→20:54)
[2019-11-15] MEDS: Loratadine 10 MG TABLET PO SCH (09:51)
[2019-11-15] MEDS ORDERED: *HR* FentaNYL (PF) 100 MCG/2 ML VIAL IVP ONE (10:19)
[2019-11-15] MEDS: *HR* Rivaroxaban 10 MG TABLET PO SCH (10:44)
[2019-11-15] MEDS: 0.9 % Sodium Chloride 1,000 ML IVC SCH (16:13)
[2019-11-15] MEDS: traZODone 50 MG TABLET PO SCH (20:54)
[2019-11-16] MEDS: 0.9 % Sodium Chloride 1,000 ML IVC SCH ×3 (00:26→21:02)
[2019-11-16 01:22] LABS: Hemoglobin 12.4 g/dL (11.5-15.4); Mean Corpuscular HGB Conc 30.2 g/dL (31.6-35.5); Mean Corpuscular Volume 89.3 fL (83.0-100.0); Mean Platelet Volume 10.6 fL (9.4-12.4); Platelet Count 280 K/mcL (140-400); Red Blood Count 4.59 M/mcL (3.82-4.97); Red Cell Distribution Width 16.7 % (11.5-14.5); White Blood Count 9.2 K/mcL (4.3-11.1)
[2019-11-16 01:42] LABS: Calcium 9.5 mg/dL (8.6-10.3); Potassium 5.5 mEq/L (3.5-5.1)
[2019-11-16] MEDS: Acetaminophen 325 MG TABLET PO PRN ×2 (02:13→08:43)
[2019-11-16] MEDS: DilTIAZem CD (24hr) 180 MG CAP.ER.24H PO SCH (08:37)
[2019-11-16] MEDS: *HR* Rivaroxaban 10 MG TABLET PO SCH (08:37)
[2019-11-16] MEDS: Loratadine 10 MG TABLET PO SCH (08:37)
[2019-11-16] MEDS: Metoprolol XL (24 HR) Succ 25 MG TAB.ER.24H PO SCH (12:27)
[2019-11-16] MEDS: traZODone 50 MG TABLET PO SCH (20:57)
[2019-11-17] MEDS ORDERED: Morphine Sulfate 2 MG/ML SYRINGE IVP ONE (00:01)
[2019-11-17] MEDS ORDERED: *HR* Metoprolol 5 MG/5 ML VIAL IVP PRN (03:15)
[2019-11-17] MEDS ORDERED: *HR* Metoprolol 5 MG/5 ML VIAL IVP ONE (05:22)
[2019-11-17] MEDS: 0.9 % Sodium Chloride 1,000 ML IVC SCH (05:28)
[2019-11-17] MEDS: DilTIAZem CD (24hr) 180 MG CAP.ER.24H PO SCH (05:37)
[2019-11-17 06:37] VITALS: BP 98/61
[2019-11-17 06:51] LABS: Potassium 4.9 mEq/L (3.5-5.1)
[2019-11-17] MEDS: *HR* Rivaroxaban 10 MG TABLET PO SCH (08:15)
[2019-11-17] MEDS: Loratadine 10 MG TABLET PO SCH (08:16)
== END 2019-11-17 10:35 | disposition home or self-care (01) | DRG 939 ==
LOC: 3BNU
PROVIDERS: ADMIT Internal Medicine; ATTEND Internal Medicine

== ENCOUNTER 2019-11-18 08:27 | Inpatient (IN) ==
[2019-11-18] MEDS ORDERED: Naloxone 0.4 MG/ML INJ IVP PRN (10:38)
[2019-11-18] MEDS ORDERED: Magnesium Sulfate 1 GM/102 ML PIGGYBACK IVPB ONE (11:58)
[2019-11-18] MEDS ORDERED: *HR* Digoxin 0.5 MG/2 ML AMPUL IVP ONE (11:58)
[2019-11-18] MEDS: Metoprolol XL (24 HR) Succ 25 MG TAB.ER.24H PO SCH ×2 (14:32→20:54)
[2019-11-18] MEDS: Acetaminophen 325 MG TABLET PO PRN (18:08)
[2019-11-18] MEDS ORDERED: Metoprolol XL (24 HR) Succ 25 MG TAB.ER.24H PO SCH (21:00)
[2019-11-19] MEDS: Acetaminophen 325 MG TABLET PO PRN ×2 (00:13→22:17)
[2019-11-19 05:52] LABS: Basophils % 0.6 %; Immature Granulocytes % 0.3 % (0-4)
[2019-11-19 05:54] LABS: Eosinophils % 0.4 %; Hemoglobin 11.6 g/dL (11.5-15.4); Immature Platelets 4.8 % (1.1-6.1); Lymphocytes # 0.6 K/mcL (0.6-4.6); Lymphocytes % 9.4 %; Mean Corpuscular HGB Conc 29.7 g/dL (31.6-35.5); Mean Corpuscular Hemoglobin 26.9 pg (28.0-33.3); Mean Corpuscular Volume 90.5 fL (83.0-100.0); Monocytes # 0.9 K/mcL (0.0-1.3); Monocytes % 13.4 %; Neutrophils # 5.2 K/mcL (1.6-8.9); Platelet Count 259 K/mcL (140-400); Red Blood Count 4.31 M/mcL (3.82-4.97); Segmented Neutrophils % 75.9 %; White Blood Count 6.8 K/mcL (4.3-11.1)
[2019-11-19 06:01] LABS: INR 1.3; Prothrombin Time 14.7 Seconds (9.4-12.1)
[2019-11-19 06:03] LABS: Activated Partial Thrombo Time 28.2 Seconds (26.0-36.0)
[2019-11-19 06:14] LABS: BUN/Creatinine Ratio 48 (6-26); Blood Urea Nitrogen 51 mg/dL (8-23); Calcium 9.7 mg/dL (8.6-10.3); Carbon Dioxide 27 mEq/L (23-29); Chloride 97 mEq/L (98-107); Glucose 97 mg/dL (70-105); Magnesium 1.7 mg/dL (1.6-2.6); Osmolality,Calculated 286 (280-300); Phosphorous 2.8 mg/dL (2.7-4.5); Potassium 5.1 mEq/L (3.5-5.1); Sodium 131 mEq/L (136-145); eGFR For African Americans > 60 (> 60); eGFR For Non-African Americans 51 (> 60)
[2019-11-19] MEDS ORDERED: 0.9 % Sodium Chloride 1,000 ML IVC SCH (08:00)
[2019-11-19] MEDS ORDERED: *HR* Digoxin 0.5 MG/2 ML AMPUL IVP ONE (08:28)
[2019-11-19] MEDS ORDERED: Magnesium Sulfate 1 GM/102 ML PIGGYBACK IVPB ONE (08:30)
[2019-11-19] MEDS ORDERED: DilTIAZem CD (24hr) 180 MG CAP.ER.24H PO SCH (09:00)
[2019-11-19] MEDS: *HR* Digoxin 0.125 MG TABLET PO SCH ×2 (09:08→09:17)
[2019-11-19] MEDS: Metoprolol XL (24 HR) Succ 25 MG TAB.ER.24H PO SCH (09:17)
[2019-11-19] MEDS: DilTIAZem 50 MG/50 ML IV.SOLN IVC SCH ×4 (09:43→23:51)
[2019-11-19] MEDS ORDERED: 0.9 % Sodium Chloride 250 ML ONE (12:04)
[2019-11-19] MEDS: Furosemide 240 MG in 0.9 % Sodium Chloride 96 ML IVC SCH (12:23)
[2019-11-19] MEDS: 0.9 % Sodium Chloride 250 ML IVC SCH ×2 (13:48→23:12)
[2019-11-19] MEDS: *HR* Rivaroxaban 10 MG TABLET PO SCH (17:06)
[2019-11-19] MEDS ORDERED: MOM Conc 10 ML UD.LIQ PO ONE (21:30)
[2019-11-20] MEDS ORDERED: *HR* LORazepam 2 MG/ML VIAL IVP ONE ×2 (00:10→20:42)
[2019-11-20] MEDS: Metoprolol XL (24 HR) Succ 25 MG TAB.ER.24H PO SCH ×2 (00:15→21:32)
[2019-11-20 03:26] LABS: Hematocrit 39.9 % (35.3-44.9); Hemoglobin 12.3 g/dL (11.5-15.4); Mean Corpuscular HGB Conc 30.8 g/dL (31.6-35.5); Mean Corpuscular Hemoglobin 26.9 pg (28.0-33.3); Mean Corpuscular Volume 87.3 fL (83.0-100.0); Platelet Count 299 K/mcL (140-400); Red Blood Count 4.57 M/mcL (3.82-4.97); Red Cell Distribution Width 16.8 % (11.5-14.5); White Blood Count 8.6 K/mcL (4.3-11.1)
[2019-11-20 03:37] LABS: BUN/Creatinine Ratio 46 (6-26); Blood Urea Nitrogen 50 mg/dL (8-23); Calcium 9.7 mg/dL (8.6-10.3); Carbon Dioxide 26 mEq/L (23-29); Chloride 99 mEq/L (98-107); Glucose 113 mg/dL (70-105); Magnesium 1.7 mg/dL (1.6-2.6); Osmolality,Calculated 290 (280-300); Potassium 4.6 mEq/L (3.5-5.1); Sodium 133 mEq/L (136-145); eGFR For African Americans > 60 (> 60); eGFR For Non-African Americans 50 (> 60)
[2019-11-20] MEDS: DilTIAZem 50 MG/50 ML IV.SOLN IVC SCH ×3 (07:11→20:59)
[2019-11-20] MEDS ORDERED: Metoprolol XL (24 HR) Succ 25 MG TAB.ER.24H PO SCH (09:00)
[2019-11-20] MEDS: Acetaminophen 325 MG TABLET PO PRN ×3 (09:31→21:35)
[2019-11-20] MEDS ORDERED: *HR* Digoxin 0.5 MG/2 ML AMPUL IVP ONE (14:43)
[2019-11-20] MEDS: *HR* Rivaroxaban 10 MG TABLET PO SCH (16:26)
[2019-11-20] MEDS: *HR* Digoxin 0.5 MG/2 ML AMPUL IVP SCH (21:34)
[2019-11-21] MEDS: 0.9 % Sodium Chloride 250 ML IVC SCH ×2 (00:27→00:32)
[2019-11-21] MEDS: *HR* HYDROcodone/Acet 5/325 mg TABLET PO PRN ×3 (02:52→20:26)
[2019-11-21 03:13] LABS: Hematocrit 41.3 % (35.3-44.9); Hemoglobin 12.7 g/dL (11.5-15.4); Mean Corpuscular HGB Conc 30.8 g/dL (31.6-35.5); Mean Corpuscular Hemoglobin 27.6 pg (28.0-33.3); Mean Corpuscular Volume 89.8 fL (83.0-100.0); Mean Platelet Volume 11.2 fL (9.4-12.4); Platelet Count 281 K/mcL (140-400); Red Cell Distribution Width 17.2 % (11.5-14.5); White Blood Count 7.5 K/mcL (4.3-11.1)
[2019-11-21 03:27] LABS: Calcium 9.3 mg/dL (8.6-10.3); Magnesium 1.9 mg/dL (1.6-2.6); Potassium 4.6 mEq/L (3.5-5.1)
[2019-11-21] MEDS: *HR* Digoxin 0.5 MG/2 ML AMPUL IVP SCH (04:59)
[2019-11-21] MEDS ORDERED: *HR* Digoxin 0.125 MG TABLET PO SCH (08:30)
[2019-11-21] MEDS: DilTIAZem 50 MG/50 ML IV.SOLN IVC SCH (08:48)
[2019-11-21] MEDS: Metoprolol XL (24 HR) Succ 25 MG TAB.ER.24H PO SCH ×2 (08:49→20:26)
[2019-11-21] MEDS ORDERED: *HR* HYDROcodone/Acet 5/325 mg TABLET PO STA (15:35)
[2019-11-21] MEDS: DilTIAZem CD (24hr) 180 MG CAP.ER.24H PO SCH (15:55)
[2019-11-21] MEDS: Furosemide 240 MG in 0.9 % Sodium Chloride 96 ML IVC SCH (15:56)
[2019-11-21] MEDS: *HR* Rivaroxaban 10 MG TABLET PO SCH (18:34)
[2019-11-22 06:40] LABS: Mean Corpuscular HGB Conc 29.3 g/dL (31.6-35.5); Mean Corpuscular Hemoglobin 26.3 pg (28.0-33.3); Mean Corpuscular Volume 89.9 fL (83.0-100.0); Mean Platelet Volume 10.6 fL (9.4-12.4); Platelet Count 363 K/mcL (140-400); Red Blood Count 4.56 M/mcL (3.82-4.97); Red Cell Distribution Width 16.9 % (11.5-14.5); White Blood Count 7.6 K/mcL (4.3-11.1)
[2019-11-22 06:46] LABS: INR 2.1; Prothrombin Time 23.6 Seconds (9.4-12.1)
[2019-11-22 07:04] LABS: BUN/Creatinine Ratio 53 (6-26); Blood Urea Nitrogen 55 mg/dL (8-23); Calcium 8.7 mg/dL (8.6-10.3); Carbon Dioxide 28 mEq/L (23-29); Chloride 94 mEq/L (98-107); Glucose 100 mg/dL (70-105); Magnesium 1.9 mg/dL (1.6-2.6); Osmolality,Calculated 283 (280-300); Sodium 129 mEq/L (136-145); eGFR For African Americans > 60 (> 60); eGFR For Non-African Americans 53 (> 60)
[2019-11-22 10:42] LABS: Alanine Aminotransferase 15 Units/L (7-52); Albumin 3.2 g/dL (3.5-5.7); Albumin/Globulin Ratio 1.1 (1.1-2.2); Alkaline Phosphatase 67 Units/L (34-104); Aspartate Amino Transferase 22 Units/L (13-39); Bilirubin,Direct 0.2 mg/dL (0.0-0.2); Bilirubin,Indirect 0.3 mg/dL (0.0-1.0); Bilirubin,Total 0.5 mg/dL (0.3-1.0); Total Protein 6.2 g/dL (6.4-8.9)
[2019-11-22] MEDS: Metoprolol XL (24 HR) Succ 25 MG TAB.ER.24H PO SCH ×2 (11:00→21:30)
[2019-11-22] MEDS: DilTIAZem CD (24hr) 180 MG CAP.ER.24H PO SCH (11:00)
[2019-11-22] MEDS: Acetaminophen 325 MG TABLET PO PRN (11:11)
[2019-11-22] MEDS: *HR* Digoxin 0.125 MG TABLET PO SCH (11:12)
[2019-11-22] MEDS ORDERED: Isovue-370 500 ML BOTTLE IVP ONE (14:32)
[2019-11-22 15:58] LABS: Appearance of Peritoneal Fl CLOUDY (Clear)
[2019-11-22 16:07] LABS: RBC,Peritoneal Fluid 11000 RBC/mcL
[2019-11-22 16:14] LABS: Amylase,Peritoneal Fluid 33 Units/L (No Ref Range); Glucose,Peritoneal Fluid 137 mg/dL (No Ref Range); LDH,Peritoneal Fluid > 1200 Units/L (No Ref Range); Total Protein,Peritoneal Fluid < 3.0 g/dL
[2019-11-22 16:47] LABS: Eosinophils,Peritoneal Fluid 0 %
[2019-11-22] MEDS: *HR* Rivaroxaban 10 MG TABLET PO SCH (18:05)
[2019-11-22] MEDS ORDERED: Furosemide 40 MG/4 ML VIAL IVP SCH (21:00)
[2019-11-22] MEDS: Silvasorb 44.4 ML TUBE TP SCH (21:30)
[2019-11-22] MEDS: Furosemide 240 MG in 0.9 % Sodium Chloride 96 ML IVC SCH ×2 (21:42→21:43)
[2019-11-22] MEDS: 0.9 % Sodium Chloride 250 ML IVC SCH (21:49)
[2019-11-23 07:45] LABS: INR 2.3; Prothrombin Time 26.4 Seconds (9.4-12.1)
[2019-11-23 07:54] LABS: Basophils % 0.5 %; Eosinophils % 0.3 %; Hematocrit 40.7 % (35.3-44.9); Hemoglobin 12.3 g/dL (11.5-15.4); Immature Granulocytes % 0.5 % (0-4); Lymphocytes # 0.6 K/mcL (0.6-4.6); Lymphocytes % 8.4 %; Mean Corpuscular HGB Conc 30.2 g/dL (31.6-35.5); Mean Corpuscular Hemoglobin 27.5 pg (28.0-33.3); Mean Corpuscular Volume 90.8 fL (83.0-100.0); Monocytes % 13.6 %; Neutrophils # 5.9 K/mcL (1.6-8.9); Platelet Count 334 K/mcL (140-400); Red Blood Count 4.48 M/mcL (3.82-4.97); Red Cell Distribution Width 16.8 % (11.5-14.5); Segmented Neutrophils % 76.7 %; White Blood Count 7.6 K/mcL (4.3-11.1)
[2019-11-23 08:16] LABS: Potassium 4.5 mEq/L (3.5-5.1)
[2019-11-23] MEDS: Silvasorb 44.4 ML TUBE TP SCH (08:23)
[2019-11-23] MEDS: *HR* Digoxin 0.125 MG TABLET PO SCH (08:23)
[2019-11-23] MEDS: Metoprolol XL (24 HR) Succ 25 MG TAB.ER.24H PO SCH ×2 (11:12→20:30)
[2019-11-23] MEDS ORDERED: MOM Conc 10 ML UD.LIQ PO PRN (17:17)
[2019-11-23] MEDS ORDERED: *HR* LORazepam 2 MG/ML VIAL IVP ONE (22:12)
[2019-11-24 02:34] LABS: Basophils % 0.4 %; Calcium 9.6 mg/dL (8.6-10.3); Eosinophils % 0.3 %; Hematocrit 43.1 % (35.3-44.9); Hemoglobin 12.8 g/dL (11.5-15.4); Immature Granulocytes % 0.3 % (0-4); Lymphocytes # 0.6 K/mcL (0.6-4.6); Lymphocytes % 6.9 %; Mean Corpuscular HGB Conc 29.7 g/dL (31.6-35.5); Mean Corpuscular Hemoglobin 26.5 pg (28.0-33.3); Mean Corpuscular Volume 89.2 fL (83.0-100.0); Mean Platelet Volume 11.2 fL (9.4-12.4); Monocytes # 1.1 K/mcL (0.0-1.3); Monocytes % 12.4 %; Neutrophils # 7.1 K/mcL (1.6-8.9); Platelet Count 354 K/mcL (140-400); Potassium 4.4 mEq/L (3.5-5.1); Red Blood Count 4.83 M/mcL (3.82-4.97); Red Cell Distribution Width 16.7 % (11.5-14.5); Segmented Neutrophils % 79.7 %; White Blood Count 8.9 K/mcL (4.3-11.1)
[2019-11-24 02:41] LABS: INR 1.4; Prothrombin Time 15.6 Seconds (9.4-12.1)
[2019-11-24] MEDS: Metoprolol XL (24 HR) Succ 25 MG TAB.ER.24H PO SCH ×2 (08:31→21:53)
[2019-11-24] MEDS: Acetaminophen 325 MG TABLET PO PRN ×2 (08:47→17:23)
[2019-11-24] MEDS: *HR* Digoxin 0.125 MG TABLET PO SCH (08:47)
[2019-11-24] MEDS: Silvasorb 44.4 ML TUBE TP SCH (08:59)
[2019-11-24] MEDS ORDERED: DilTIAZem CD (24hr) 180 MG CAP.ER.24H PO SCH (09:00)
[2019-11-24] MEDS ORDERED: 0.9 % Sodium Chloride 1,000 ML IVC SCH (09:45)
[2019-11-24] MEDS: *HR* Rivaroxaban 10 MG TABLET PO SCH (17:23)
[2019-11-25] MEDS ORDERED: Methyl Salicylate/Menthol 57 APPL/57 GM TUBE TP PRN (00:24)
[2019-11-25] MEDS ORDERED: *HR* Metoprolol 5 MG/5 ML VIAL IVP ONE (02:49)
[2019-11-25] MEDS: *HR* Digoxin 0.125 MG TABLET PO SCH (09:27)
[2019-11-25] MEDS: Metoprolol XL (24 HR) Succ 25 MG TAB.ER.24H PO SCH ×2 (09:27→21:31)
[2019-11-25] MEDS: Acetaminophen 325 MG TABLET PO PRN ×4 (09:27→22:30)
[2019-11-25] MEDS: DilTIAZem CD (24hr) 180 MG CAP.ER.24H PO SCH (11:06)
[2019-11-25] MEDS ORDERED: *HR* LORazepam 0.5 MG TABLET PO PRN (11:52)
[2019-11-25] MEDS: *HR* Rivaroxaban 10 MG TABLET PO SCH (16:18)
[2019-11-25] MEDS: Silvasorb 44.4 ML TUBE TP SCH (16:26)
[2019-11-26 03:55] LABS: Basophils % 0.4 %; Eosinophils # 0.1 K/mcL (0.0-0.6); Eosinophils % 1.1 %; Hematocrit 38.1 % (35.3-44.9); Immature Granulocytes % 0.6 % (0-4); Lymphocytes # 0.8 K/mcL (0.6-4.6); Lymphocytes % 8.6 %; Mean Corpuscular HGB Conc 31.5 g/dL (31.6-35.5); Mean Corpuscular Hemoglobin 28.1 pg (28.0-33.3); Mean Corpuscular Volume 89.2 fL (83.0-100.0); Mean Platelet Volume 11.2 fL (9.4-12.4); Monocytes # 1.4 K/mcL (0.0-1.3); Monocytes % 14.8 %; Neutrophils # 7.2 K/mcL (1.6-8.9); Platelet Count 326 K/mcL (140-400); Red Blood Count 4.27 M/mcL (3.82-4.97); Red Cell Distribution Width 16.8 % (11.5-14.5); Segmented Neutrophils % 74.5 %; White Blood Count 9.7 K/mcL (4.3-11.1)
[2019-11-26 04:00] LABS: BUN/Creatinine Ratio 60 (6-26); Blood Urea Nitrogen 50 mg/dL (8-23); Calcium 9.2 mg/dL (8.6-10.3); Carbon Dioxide 24 mEq/L (23-29); Chloride 98 mEq/L (98-107); Glucose 120 mg/dL (70-105); Magnesium 2.1 mg/dL (1.6-2.6); Osmolality,Calculated 287 (280-300); Sodium 131 mEq/L (136-145); eGFR For African Americans > 60 (> 60); eGFR For Non-African Americans > 60 (> 60)
[2019-11-26] MEDS: Acetaminophen 325 MG TABLET PO PRN ×2 (05:17→15:58)
[2019-11-26] MEDS: Metoprolol XL (24 HR) Succ 25 MG TAB.ER.24H PO SCH (09:27)
[2019-11-26] MEDS: *HR* Digoxin 0.125 MG TABLET PO SCH (09:27)
[2019-11-26] MEDS: Silvasorb 44.4 ML TUBE TP SCH (09:35)
[2019-11-26 15:11] VITALS: BP 109/57
[2019-11-26] MEDS: *HR* Rivaroxaban 10 MG TABLET PO SCH (15:58)
== END 2019-11-26 19:20 | DRG 291 ==
LOC: 3ANU → SUATTDRO 09:55 → 2ANU 11-19 20:48
PROVIDERS: ADMIT Internal Medicine; ATTEND Internal Medicine